=== PATIENT | female | born 1965 | race Caucasian/White ===

== ENCOUNTER 2016-06-13 12:17 | Observation (INO) | payer BC ==
[2016-06-13] MEDS ORDERED: ASPIRIN 81 MG TABLET, CHEWABLE PO ONE (12:27)
--- NOTE | 2016-06-13 12:31 | ER Document Report ---
ED Medical Screen (RME) - General Chief Complaint: Chest Pain > 30 Stated Complaint: CHEST PAIN Time seen by provider: 12:29 Mode of Arrival: Wheelchair Information source: Patient Notes: 51-year-old female presents to ED for chest very tight like an elephant sitting on her chest this morning while all with her in outpatient. She stood up felt very dizzy and felt like she was given a pass out that her chest started hurting, short of breath, felt nausea no vomiting. Patient states that her mouth is very dry. She states she had a stress test about a month ago which was negative, she has a history of high blood pressure and is on medication her heart rate is 139 in RME. Physical Exam - Vital signs Vitals: Temp Pulse Resp BP Pulse Ox 97.8 F 139 H 18 132/78 H 100 06/13/16 12:19 06/13/16 12:19 06/13/16 12:19 06/13/16 12:19 06/13/16 12:19 Course - Vital Signs Vital signs: Temp Pulse Resp BP Pulse Ox 97.8 F 139 H 18 132/78 H 100 06/13/16 12:19 06/13/16 12:19 06/13/16 12:19 06/13/16 12:19 06/13/16 12:19
[2016-06-13] MEDS ORDERED: NITROGLYCERIN 0.4 MG/TAB 25 TAB/BOTTLE SL PRN ×2 (13:15→15:15)
[2016-06-13 13:32] LABS: ABSOLUTE EOSINOPHILS # (AUTO) 0.2 10^3/uL (0.0-0.6); ABSOLUTE LYMPHOCYTES (AUTO) 1.9 10^3/uL (0.5-4.7); ABSOLUTE MONOCYTES (AUTO) 0.4 10^3/uL (0.1-1.4); ABSOLUTE NEUT (AUTO) 2.7 10^3/uL (1.7-8.2); BASOPHILS % (AUTO) 0.6 % (0-2); EOSINOPHILS % (AUTO) 3.1 % (0-6); HEMATOCRIT 40.1 % (36.0-47.0); HGB HCT DIFFERENCE -1.1; LYMPHOCYTES % (AUTO) 37.3 % (13-45); MEAN CORPUSCULAR HEMOGLOBIN 27.5 pg (27.0-33.4); MEAN CORPUSCULAR HGB CONC 32.5 g/dL (32.0-36.0); MEAN CORPUSCULAR VOLUME 85 fl (80-97); RED BLOOD COUNT 4.73 10^6/uL (3.72-5.28); RED CELL DISTRIBUTION WIDTH 13.1 % (11.5-14.0); WHITE BLOOD COUNT 5.1 10^3/uL (4.0-10.5)
[2016-06-13 13:43] LABS: ALANINE AMINOTRANSFERASE 47 U/L (9-52); ALBUMIN 4.8 g/dL (3.5-5.0); ALKALINE PHOSPHATASE 81 U/L (38-126); ANION GAP 13 (5-19); ASPARTATE AMINO TRANSFERASE 56 U/L (14-36); BILIRUBIN,TOTAL 0.7 mg/dL (0.2-1.3); BLOOD UREA NITROGEN 12 mg/dL (7-20); CALCIUM 10.4 mg/dL (8.4-10.2); CARBON DIOXIDE 29 mmol/L (22-30); CHLORIDE 101 mmol/L (98-107); CREATINE KINASE 141 U/L (30-135); CREATININE RESULT 0.83 mg/dL (0.52-1.25); GLUCOSE 133 mg/dL (75-110); POTASSIUM 4.7 mmol/L (3.6-5.0); SODIUM 143.3 mmol/L (137-145); TOTAL PROTEIN 7.7 g/dL (6.3-8.2)
[2016-06-13 13:44] LABS: PROTHROMBIN TIME 12.8 SEC (11.4-15.4)
[2016-06-13 13:45] LABS: PARTIAL THROMBOPLASTIN TIME 27.1 SEC (23.5-35.8)
[2016-06-13 13:56] LABS: TROPONIN I < 0.012 ng/mL
--- NOTE | 2016-06-13 14:52 | ER Document Report ---
ED Cardiac - General Chief Complaint: Chest Pain > 30 Stated Complaint: CHEST PAIN Mode of Arrival: Wheelchair Notes: Patient is a hypertensive, previous smoker 51-year-old female who presents to emergency Department complaining of sudden onset chest pain. Patient states last evening she was sleeping and woke him up out of his sleep with sudden onset substernal pressure described as 5 out of 5 in severity is stated dyspnea due to the pressure feeling. She said she was able to fall back asleep. Patient says that today they came to the hospital for her to have rotator cuff surgery. She went to stand up when she had return of this chest pain described as a heavy pressure that is constant is a 5 out of 5 in severity with associated dyspnea. She also states she had associated dizziness and nausea without any radiation. She came over to our emergency department for evaluation. Past medical history significant for hypertension and rheumatoid arthritis, was previously treated for pneumonia over a month ago Previously had a stress test within the year which was normal Past surgical history denies Social history quit 3 years ago but 12-1/2 pack years No allergies The patient will be a new patient at [facility] in [place] to see Polly Hernandez within the month TRAVEL OUTSIDE OF THE [place] IN LAST 30 DAYS: No - Related Data Allergies/Adverse Reactions: No Known Allergies Allergy (Verified 06/13/16 12:32) Past Medical History - General Information source: Patient - Social History Smoking Status: Never Smoker Chew tobacco use (# tins/day): No Frequency of alcohol use: None Drug Abuse: None Family History: CAD, Other - CHF Patient has suicidal ideation: No Patient has homicidal ideation: No - Past Medical History Cardiac Medical History: Reports: Hx Hypertension Renal/ Medical History: Denies: Hx Peritoneal Dialysis Musculoskeltal Medical History: Reports Hx Arthritis Surgical Hx: Negative Review of Systems - Review of Systems Constitutional: No symptoms reported EENT: No symptoms reported Cardiovascular: See HPI Respiratory: See HPI Gastrointestinal: See HPI Genitourinary: No symptoms reported Female Genitourinary: No symptoms reported Musculoskeletal: No symptoms reported Skin: No symptoms reported Hematologic/Lymphatic: No symptoms reported Neurological/Psychological: No symptoms reported Physical Exam - Vital signs Vitals: Temp Pulse Resp BP Pulse Ox 97.8 F 139 H 18 132/78 H 100 06/13/16 12:19 06/13/16 12:19 06/13/16 12:06/13/16 12:06/13/16 12:19 - Notes Notes: PHYSICAL EXAM GENERAL: Alert, interacts well. HEAD: Normocephalic, atraumatic. EYES: Pupils equal, round, and reactive to light. Extraocular movements intact. ENT: Oral mucosa moist, tongue midline. NECK: Full range of motion. Supple. Trachea midline. LUNGS: Clear to auscultation bilaterally, no wheezes, rales, or rhonchi. No respiratory distress. HEART: Regular rate and rhythm. No murmurs, gallops, or rubs. ABDOMEN: Soft, nondistended, nontender. No guarding, rebound, or rigidity.. Bowel sounds present in all 4 quadrants. EXTREMITIES: Moves all 4 extremities spontaneously. No edema, radial and dorsalis pedis pulses 2/4 bilaterally. No cyanosis. NEUROLOGICAL: Alert and oriented x3. Normal speech. PSYCH: Normal affect, normal mood. SKIN: Warm, dry, normal turgor. No rashes or lesions noted. Course - Re-evaluation Re-evalutation: 06/13/16 14:53 Patient is a 51-year-old female who is in no acute distress and hemodynamically stable. Presented the emergency department with sudden onset chest pain that was substernal in nature. She has had 2 occurrences of this within 12 hours 1 originally waking her out of sleep. She was given acetaminophen which did not resolve her pain per protocol, was also given one sublingual nitroglycerin tablet which didn't resolve her pain. She has no acute EKG changes, troponins are negative but does have elevation in her CK-MB and creatinine kinase. Case is discussed with supervising physician Dr. Ashley Munguia, hospitalist Dr. Naya Fernandez and Jordana Driver SCALE TECHNICIAN for observation for chest pain given her risk factors of high blood pressure, previous smoker, age and female as well as her history and labs. Plan was discussed with patient. While she was tearful because her is having surgery and she is hoping to go home. She has expressed understanding and agrees to plan. - Vital Signs Vital signs: Temp Pulse Resp BP Pulse Ox 97.8 F 139 H 18 132/78 H 98 06/13/16 12:19 06/13/16 12:06/13/16 12:06/13/16 12:19 06/13/16 13:04 - Laboratory Result Diagrams: 06/13/16 12:55 06/13/16 12:55 Laboratory results interpreted by me: 06/13/16 06/13/16 12:55 12:55 Glucose 133 H Calcium 10.4 H AST 56 H Creatine Kinase 141 H CK-MB (CK-2) 4.90 H - Diagnostic Test Radiology reviewed: Image reviewed, Reports reviewed - EKG Interpretation by Me EKG shows normal: Sinus rhythm Rate: Normal Rhythm: NSR When compared to previous EKG there are: Previous EKG unavailable - Consults Jordana Driver SCALE TECHNICIAN Reason for consultation: 06/13/16 14:51 Observation for chest pain. Discharge - Discharge Clinical Impression: Chest pain Qualifiers: Chest pain type: unspecified Qualified Code(s): R07.9 - Chest pain, unspecified Condition: Stable Disposition: ADMITTED OBSERVATION Admitting Provider: Hospitalist Unit Admitted: Telemetry
--- NOTE | 2016-06-13 16:11 | PDOC H&P ---
History of Present Illness Admission Date/PCP: 06/13/16 15:38 DAINA MARGI Patient complains of: Epigastric pain History of Present Illness: MARIA A LOREDO is a 51 year old female who presents to [facility] ED this morning, with complaints of epigastric pain radiating up midsternally awoke in her from sleep. She had mild dyspnea associated with pain as well as nausea. She denies any diaphoresis, she denies any palpitations or vomiting. She had recent pain a month ago, and was seen by her primary care provider. She underwent stress testing in [place] which was reported negative for cardiac ischemia. She states the pain today was similar to that how ever it was more severe in nature. She denies any history of gastroesophageal reflux disease or gallbladder disease. She states the pain did not resolve at home she therefore presented to the the ER. She does admit to being under a great deal of stress at home as well as work. She does have family history of coronary artery disease in her mother who passed with the age 69 from an [place]. Patient reports normal cholesterol results. She she does have mild essential hypertension and former tobacco user. She is postnasal menopausal with last menstrual cycle being over 10 years ago. Past Medical History Cardiac Medical History: Reports: Hypertension Pulmonary Medical History: Reports: None EENT Medical History: Reports: None Neurological Medical History: Reports: None Endocrine Medical History: Reports: None Renal/ Medical History: Reports: None Malignancy Medical History: Reports: None GI Medical History: Reports: None Musculoskeltal Medical History: Reports: Arthritis Skin Medical History: Reports: None Psychiatric Medical History: Reports: None Traumatic Medical History: Reports: None Hematology: Reports: None Infectious Medical History: Reports: None Past Surgical History Past Surgical History: Reports: None Social History Information Source: Patient Lives with: Family, Spouse/Significant other Smoking Status: Former Smoker Number of Years Smokin Last Time Smoked: 3 yrs ago Frequency of Alcohol Use: Occasional Hx Recreational Drug Use: No - Advance Directive Resuscitation Status: Full Code Surrogate healthcare decision maker:: if she were to become incapacitated Family History Family History: CAD, Hypertension, Other - CHF Parental Family History Reviewed: Yes Children Family History Reviewed: Yes Sibling(s) Family History Reviewed.: Yes Medication/Allergy Allergies/Adverse Reactions: No Known Allergies Allergy (Verified 06/13/16 12:32) Review of Systems Constitutional: ABSENT: chills, fever(s), headache(s), weight gain, weight loss Eyes: ABSENT: visual disturbances Ears: ABSENT: hearing changes Cardiovascular: PRESENT: chest pain. ABSENT: dyspnea on exertion, edema, orthropnea, palpitations Respiratory: ABSENT: cough, hemoptysis Gastrointestinal: PRESENT: heartburn. ABSENT: abdominal pain, constipation, diarrhea, hematemesis, hematochezia, nausea, vomiting Genitourinary: ABSENT: dysuria, hematuria Musculoskeletal: ABSENT: joint swelling Integumentary: ABSENT: rash, wounds Neurological: ABSENT: abnormal gait, abnormal speech, confusion, dizziness, focal weakness, syncope Psychiatric: PRESENT: anxiety. ABSENT: depression, homidical ideation, suicidal ideation Endocrine: ABSENT: cold intolerance, heat intolerance, polydipsia, polyuria Hematologic/Lymphatic: ABSENT: easy bleeding, easy bruising Physical Exam Vital Signs: Temp Pulse Resp BP Pulse Ox 97.8 F 139 H 16 97/72 L 99 06/13/16 12:19 06/13/16 12:19 06/13/16 15:00 06/13/16 14:01 06/13/16 15:00 General appearance: PRESENT: no acute distress, obese, well-developed, well- nourished Head exam: PRESENT: atraumatic, normocephalic Eye exam: PRESENT: conjunctiva pink, EOMI, PERRLA. ABSENT: scleral icterus Ear exam: PRESENT: normal external ear exam Mouth exam: PRESENT: moist, tongue midline Respiratory exam: PRESENT: clear to auscultation willian. ABSENT: rales, rhonchi, wheezes Cardiovascular exam: PRESENT: RRR. ABSENT: diastolic murmur, rubs, systolic murmur Pulses: PRESENT: normal dorsalis pedis pul Vascular exam: PRESENT: normal capillary refill GI/Abdominal exam: PRESENT: normal bowel sounds, soft. ABSENT: distended, guarding, mass, organolmegaly, rebound, tenderness Rectal exam: PRESENT: deferred Extremities exam: PRESENT: full ROM. ABSENT: calf tenderness, clubbing, pedal edema Neurological exam: PRESENT: alert, awake, oriented to person, oriented to place , oriented to time, oriented to situation, CN II-XII grossly intact. ABSENT: motor sensory deficit Psychiatric exam: PRESENT: appropriate affect, normal mood. ABSENT: homicidal ideation, suicidal ideation Skin exam: PRESENT: dry, intact, warm. ABSENT: cyanosis, rash Results Impressions: Chest X-Ray 06/13/16 12:28 IMPRESSION: NO SIGNIFICANT RADIOGRAPHIC FINDING IN THE CHEST. Assessment & Plan - Diagnosis (1) Chest pain Qualifiers: Chest pain type: unspecified Qualified Code(s): R07.9 - Chest pain, unspecified Is this a current diagnosis for this admission?: YesPlan: Patient had a negative stress test one month ago. Will obtain ultrasound of gallbladder, start on PPI therapy and serial troponins (2) Epigastric abdominal pain Is this a current diagnosis for this admission?: YesPlan: Will obtain ultrasound of gallbladder and start on PPI therapy (3) Obesity (BMI 35.0-39.9 without comorbidity) Is this a current diagnosis for this admission?: YesPlan: Patient counseled - Time Time Spent: 50 to 70 Minutes Critical Time spent with patient: 25-34 minutes Medications reviewed and adjusted accordingly: Yes Anticipated discharge: Home
[2016-06-13] MEDS ORDERED: MAG HYDROX/AL HYDROX/SIMETH SUSP 30 ML UDCUP PO ONE (17:16)
[2016-06-13] MEDS ORDERED: LIDOCAINE 2% VISCOUS SOLN 20 ML UDCUP PO ONE (17:16)
[2016-06-13] MEDS ORDERED: METOCLOPRAMIDE HCL ORAL SOLN 10 MG/10 ML UDCUP PO ONE (17:16)
[2016-06-13] MEDS: LANSOPRAZOLE 30 MG TAB.RAP.DR PO SCH (18:24)
[2016-06-13] MEDS: DIAZEPAM 5 MG TABLET PO PRN (18:53)
--- NOTE | 2016-06-13 18:56 | EKG REPORT ---
SEVERITY:- NORMAL ECG - SINUS RHYTHM : Confirmed by: Rohith Jean MD 13-Jun-2016 18:56:08
--- NOTE | 2016-06-13 18:57 | EKG REPORT ---
SEVERITY:- OTHERWISE NORMAL ECG - SINUS TACHYCARDIA : Confirmed by: Rohith Jean MD 13-Jun-2016 18:56:18
[2016-06-13 20:36] LABS: CREATINE KINASE MB 4.59 ng/mL (<4.55)
[2016-06-13 20:49] LABS: TROPONIN I < 0.012 ng/mL
[2016-06-14 02:04] LABS: CREATINE KINASE MB 4.99 ng/mL (<4.55)
[2016-06-14 02:05] LABS: TROPONIN I < 0.012 ng/mL
[2016-06-14] MEDS: LANSOPRAZOLE 30 MG TAB.RAP.DR PO SCH (06:13)
[2016-06-14 09:34] LABS: CHOLESTEROL 154.72 mg/dL (0-200); Direct HDL 48 mg/dL (>40); TRIGLYCERIDES 125 mg/dL (<150)
[2016-06-14 09:44] LABS: DIRECT LDL 55 mg/dL (<100)
[2016-06-14 09:46] LABS: CREATINE KINASE MB 4.87 ng/mL (<4.55)
[2016-06-14 09:56] LABS: TROPONIN I < 0.012 ng/mL
[2016-06-14] MEDS ORDERED: ASPIRIN 81 MG TABLET, ENT COATED PO SCH (10:00)
[2016-06-14] MEDS ORDERED: LISINOPRIL 10 MG TABLET PO SCH (10:00)
[2016-06-14] MEDS: DIAZEPAM 5 MG TABLET PO PRN (10:03)
[2016-06-14 12:55] VITALS: BP 101/63
--- NOTE | 2016-06-14 16:10 | PDOC DISCHARGE SUMMARY ---
General - Admit/Disc Date/PCP Admission Date/Primary Care Provider: 06/13/16 15:15 DAINA KISER Discharge Date: 06/14/16 - Discharge Diagnosis (1) Chest pain Is this a current diagnosis for this admission?: YesSummary: Troponins ruled out. Had negative stress test one month ago. Pain is atypical and positional most likely related to GI source. Ultrasound shows cholelithiasis , no signs of cholecystitis. Follow up with general surgery as an outpatient if symptoms persist (2) Epigastric abdominal pain Is this a current diagnosis for this admission?: YesSummary: As above. Started on Protonix 40 mg daily (3) Obesity (BMI 35.0-39.9 without comorbidity) Is this a current diagnosis for this admission?: YesSummary: Counseled on weight loss and low fat diet - Additional Information Resuscitation Status: Full Code Discharge Diet: Regular, Other (Comments) - low fat Discharge Activity: Activity As Tolerated Home Medications: Lisinopril 10 mg PO DAILY 06/13/16 Pantoprazole Sodium [Protonix] 40 mg PO DAILY #30 tablet. 06/14/16 History of Present Illness Patient complains of: Epigastric and midsternal chest pain History of Present Illness: MARIA A LOREDO is a 51 year old female who presents to [facility] ED this morning, with complaints of epigastric pain radiating up midsternally awoke in her from sleep. She had mild dyspnea associated with pain as well as nausea. She denies any diaphoresis, she denies any palpitations or vomiting. She had recent pain a month ago, and was seen by her primary care provider. She underwent stress testing in [place] which was reported negative for cardiac ischemia. She states the pain today was similar to that how ever it was more severe in nature. She denies any history of gastroesophageal reflux disease or gallbladder disease. She states the pain did not resolve at home she therefore presented to the the ER. She does admit to being under a great deal of stress at home as well as work. She does have family history of coronary artery disease in her mother who passed with the age 69 from an [place]. Patient reports normal cholesterol results. She she does have mild essential hypertension and former tobacco user. She is postnasal menopausal with last menstrual cycle being over 10 years ago. Hospital Course Hospital Course: Patient was referred to the hospitalist for observation admission. The patient had a normal stress test one month ago. Therefore ultrasound of her gallbladder was obtained which showed hepatic stearotosis and cholelithiasis with no signs of choleycystitis. She had serial troponins which were all normal. She was started on PPI therapy with improvement of her symptoms. Physical Exam Vital Signs: Temp Pulse Resp BP Pulse Ox 98.4 F 71 14 122/68 97 06/14/16 12:40 06/14/16 12:40 06/14/16 12:40 06/14/16 12:40 06/14/16 12:40 Intake & Output 06/13/16 06/14/16 06/15/16 06:59 06:59 06:59 Intake Total 600 Balance 600 Weight 88.5 kg General appearance: PRESENT: no acute distress, obese, well-developed, well- nourished Head exam: PRESENT: atraumatic, normocephalic Eye exam: PRESENT: conjunctiva pink, EOMI, PERRLA. ABSENT: scleral icterus Ear exam: PRESENT: normal external ear exam Mouth exam: PRESENT: moist, tongue midline Neck exam: ABSENT: carotid bruit, JVD, lymphadenopathy, thyromegaly Respiratory exam: PRESENT: clear to auscultation willian. ABSENT: rales, rhonchi, wheezes Cardiovascular exam: PRESENT: RRR. ABSENT: diastolic murmur, rubs, systolic murmur Pulses: PRESENT: normal dorsalis pedis pul Vascular exam: PRESENT: normal capillary refill GI/Abdominal exam: PRESENT: normal bowel sounds, soft. ABSENT: distended, guarding, mass, organolmegaly, rebound, tenderness Rectal exam: PRESENT: deferred Extremities exam: PRESENT: full ROM. ABSENT: calf tenderness, clubbing, pedal edema Neurological exam: PRESENT: alert, awake, oriented to person, oriented to place , oriented to time, oriented to situation, CN II-XII grossly intact. ABSENT: motor sensory deficit Psychiatric exam: PRESENT: appropriate affect, normal mood. ABSENT: homicidal ideation, suicidal ideation Skin exam: PRESENT: dry, intact, warm. ABSENT: cyanosis, rash Results Laboratory Results: 06/14/16 08:55 Triglycerides 125 Cholesterol 154.72 LDL Cholesterol Direct 55 VLDL Cholesterol 25.0 HDL Cholesterol 48 06/13/16 06/14/16 06/14/16 19:40 01:30 08:55 CK-MB (CK-2) 4.59 H 4.99 H 4.87 H Troponin I < 0.012 < 0.012 < 0.012 Impressions: Abdomen Ultrasound 06/13/16 00:00 IMPRESSION: Cholelithiasis. 1.2 cm nonspecific common duct dilation. Laboratory correlation recommended. Chest X-Ray 06/13/16 12:28 IMPRESSION: NO SIGNIFICANT RADIOGRAPHIC FINDING IN THE CHEST. Qualifiers PATEINT BEING DISCHARGED WITH ANY OF THE FOLLOWING DIAGNOSIS?: No Plan Discharge Plan: Discharge home with family. Follow up with primary care provider in one week. Time Spent: Less than 30 Minutes
== END 2016-06-14 13:18 | disposition home or self-care (01) ==
LOC: ER 12:17 → EH 15:15 → UNDOADMOB 15:38 → 5 17:39
PROVIDERS: ADMIT Family Medicine; ATTEND Family Medicine
DX: R07.9 Chest pain, unspecified (principal); R10.13 Epigastric pain; E66.9 Obesity, unspecified; Z68.35 Body mass index [BMI] 35.0-35.9, adult; I10 Essential (primary) hypertension; M19.90 Unspecified osteoarthritis, unspecified site; Z87.891 Personal history of nicotine dependence; Z82.49 Family history of ischemic heart disease and other diseases of the circulatory system
CPT/HCPCS: 93005; 99285; 36415 ×2; 82553 ×2; 82550; 83735; 84443; 85025; 85610; 85730; 80053; 84484 ×2; 80061; 71020; 76700; 93010; G0378 ×3; J3490

== ENCOUNTER 2017-07-01 04:40 | Emergency (ER) | payer BC ==
[2017-07-01] MEDS ORDERED: IPRATROPIUM/ALBUTEROL 0.5-2.5 MG/3 ML AMPUL NEB ONE (04:45)
[2017-07-01] MEDS ORDERED: PREDNISONE 20 MG TABLET PO ONE (04:45)
[2017-07-01] MEDS ORDERED: ALBUTEROL SULFATE 0.083% NEB 2.5 MG/3 ML AMPUL NEB SCH (05:00)
--- NOTE | 2017-07-01 06:03 | RADIOLOGY REPORT (SQ) ---
EXAM DESCRIPTION: CHEST SINGLE VIEW CLINICAL HISTORY: difficulty breathing COMPARISON: 06/13/2016 FINDINGS: Single frontal view of the chest. The cardiomediastinal silhouette has normal size and contour. No consolidation, pneumothorax, or pleural effusion. No displaced rib fractures identified. Upper abdominal soft tissues are unremarkable. IMPRESSION: 1. No acute pulmonary process identified.
[2017-07-01] MEDS ORDERED: ALBUTEROL SULFATE 0.083% NEB 2.5 MG/3 ML AMPUL NEB ONE (06:37)
--- NOTE | 2017-07-01 06:52 | ER Document Report ---
ED General - General Chief Complaint: Breathing Difficulty Stated Complaint: DIFFICULTY BREATHING Time Seen by Provider: 07/01/17 06:13 TRAVEL OUTSIDE OF THE [place] IN LAST 30 DAYS: No - HPI Patient complains to provider of: Difficulty breathing Notes: Difficulty breathing for the last 2 3 days. Patient states has a history of asthma. Patient states ran out of her nebulizer treatments at home. Patient does not smoke however from the did. Patient states there are family members to still smoke around her. Denies any recent travel denies fevers chills nausea vomiting denies any chest pain abdominal pain. Patient states cough with white sputum. Patient resting comfortably upon my evaluation artery received 1 breathing treatment states that she is feeling a little bit better. - Related Data Allergies/Adverse Reactions: No Known Allergies Allergy (Verified 06/13/16 12:32) Past Medical History - Social History Smoking Status: Never Smoker Frequency of alcohol use: None Drug Abuse: None Family History: CAD, Hypertension, Other - CHF Patient has suicidal ideation: No Patient has homicidal ideation: No - Past Medical History Cardiac Medical History: Reports: Hx Hypertension Renal/ Medical History: Denies: Hx Peritoneal Dialysis Musculoskeltal Medical History: Reports Hx Arthritis Psychiatric Medical History: Reports: Hx Depression Review of Systems - Review of Systems Constitutional: No symptoms reported EENT: No symptoms reported Cardiovascular: No symptoms reported Respiratory: Short of breath, Wheezing Gastrointestinal: No symptoms reported Genitourinary: No symptoms reported Female Genitourinary: No symptoms reported Musculoskeletal: No symptoms reported Skin: No symptoms reported Hematologic/Lymphatic: No symptoms reported Neurological/Psychological: No symptoms reported -: Yes All other systems reviewed and negative Physical Exam - Vital signs Vitals: Resp Pulse Ox 13 99 07/01/17 05:48 07/01/17 05:48 Interpretation: Normal - General General appearance: Appears well, Alert - HEENT Head: Normocephalic, Atraumatic Eyes: Normal Pupils: PERRL - Respiratory Respiratory status: No respiratory distress Chest status: Nontender Breath sounds: Wheezing Chest palpation: Normal - Cardiovascular Rhythm: Regular Heart sounds: Normal auscultation Murmur: No - Abdominal Inspection: Normal Distension: No distension Bowel sounds: Normal Tenderness: Nontender Organomegaly: No organomegaly - Back Back: Normal, Nontender - Extremities General upper extremity: Normal inspection, Nontender, Normal color, Normal ROM , Normal temperature General lower extremity: Normal inspection, Nontender, Normal color, Normal ROM , Normal temperature, Normal weight bearing. No: Alecia's sign - Neurological Neuro grossly intact: Yes Cognition: Normal Orientation: AAOx4 Tricia Coma Scale Eye Opening: Spontaneous [place] Coma Scale Verbal: Oriented Tricia Coma Scale Motor: Obeys Commands [place] Coma Scale Total: 15 Speech: Normal Motor strength normal: LUE, RUE, LLE, RLE Sensory: Normal - Psychological Associated symptoms: Normal affect, Normal mood - Skin Skin Temperature: Warm Skin Moisture: Dry Skin Color: Normal Course - Re-evaluation Re-evalutation: 07/01/17 06:51 Patient presents with wheezing on examination feeling much better after breathing treatments. Patient will be given another albuterol will send patient home with a prednisone taper and inhalers with neb treatments. Patient is to use her inhaler or neb treatment every 2 hours. Otherwise patient resting comfortably no signs of significant pathology chest x-ray negative - Vital Signs Vital signs: Temp Pulse Resp BP Pulse Ox 12 124/74 100 07/01/17 06:01 07/01/17 06:01 07/01/17 06:01 Discharge - Discharge Clinical Impression: Asthma Qualifiers: Asthma severity: mild Asthma persistence: unspecified Asthma complication type : with acute exacerbation Qualified Code(s): J45.901 - Unspecified asthma with ( acute) exacerbation Condition: Good Disposition: HOME, SELF-CARE Instructions: Asthma ([facility]) Additional Instructions: Your examination is consistent with an asthma exacerbation. Please use your inhaler or nebulizer 2 puffs or 1 treatment every 2-4 hours for the next 5 days. Then as needed for shortness of breath. Take prednisone as prescribed. Return to ER symptoms worsen. Please stop smoking and I have your family member stop smoking around your person. Prescriptions: Albuterol Sulfate [Albuterol Sulfate 2.5mg/3 mL] 1 vial IH Q4 PRN #30 vial PRN Reason: Prednisone [Deltasone] 60 mg PO DAILY #24 tablet Referrals: DAINA KISER FNP [Primary Care Provider] - Follow up as needed
[2017-07-01] MEDS ORDERED: ALBUTEROL SULFATE HFA (90 MCG/PUFF) 8 GM MDI (1 MDI/ER DISP) IH ONE (06:53)
[2017-07-01 07:13] VITALS: BP 109/68
== END 2017-07-01 07:22 | disposition home or self-care (01) ==
LOC: ER 04:40
DX: J45.901 Unspecified asthma with (acute) exacerbation (principal); R06.02 Shortness of breath; I10 Essential (primary) hypertension
CPT/HCPCS: 94640 ×2; 99284; 71045; J7512; J3490; J7620

== ENCOUNTER 2018-02-27 23:21 | Emergency (ER) | payer BC ==
[2018-02-27] MEDS ORDERED: IPRATROPIUM BROMIDE 0.02% NEB 0.5 MG/2.5 ML AMPUL NEB ONE (23:37)
[2018-02-27] MEDS ORDERED: ALBUTEROL SULFATE 0.083% NEB 2.5 MG/3 ML AMPUL NEB ONE (23:38)
[2018-02-27] MEDS ORDERED: IPRATROPIUM/ALBUTEROL 0.5-2.5 MG/3 ML AMPUL NEB ONE (23:38)
[2018-02-27] MEDS ORDERED: PREDNISONE 20 MG TABLET PO ONE (23:39)
--- NOTE | 2018-02-27 23:43 | ER Document Report ---
ED Respiratory Problem - General Mode of Arrival: Wheelchair Information source: Patient TRAVEL OUTSIDE OF THE [place] IN LAST 30 DAYS: No <KELSIE HERNANDEZ - Last Filed: 02/28/18 00:53> <LINDY CHILDERS - Last Filed: 03/01/18 15:42> - General Chief Complaint: Shortness Of Breath Stated Complaint: DIFFICULTY BREATHING Time Seen by Provider: 02/27/18 23:37 Notes: Patient is a 52 year old female with asthma presents to the emergency department complaining of difficulty breathing. Patient states she woke up around 2200 tonight with chest heaviness describing it as an "elephant on my chest" and difficulty breathing. She states her current symptoms are similar to her previous asthma exacerbations. Patient states she uses ProAir and nebulizers as needed at home but recently ran out of nebulizer treatments. She states she does not currently have chest pain at bedside. Patient denies being previously hospitalized, fevers or recent illnesses. (KELSIE HERNANDEZ) - Related Data Allergies/Adverse Reactions: No Known Allergies Allergy (Verified 06/13/16 12:32) Past Medical History - General Information source: Patient - Social History Smoking Status: Never Smoker Cigarette use (# per day): No Chew tobacco use (# tins/day): No Smoking Education Provided: No Frequency of alcohol use: None Family History: CAD, Hypertension, Other - CHF - Past Medical History Cardiac Medical History: Reports: Hx Hypertension Musculoskeletal Medical History: Reports Hx Arthritis Psychiatric Medical History: Reports: Hx Depression <KELSIE HERNANDEZ - Last Filed: 02/28/18 00:53> Review of Systems - Review of Systems Constitutional: No symptoms reported EENT: No symptoms reported Cardiovascular: See HPI, Chest pain - Chest heaviness, denies current chest pain Respiratory: See HPI Gastrointestinal: No symptoms reported Genitourinary: No symptoms reported Female Genitourinary: No symptoms reported Musculoskeletal: No symptoms reported Skin: No symptoms reported Hematologic/Lymphatic: No symptoms reported Neurological/Psychological: No symptoms reported -: Yes All other systems reviewed and negative <KELSIE HERNANDEZ - Last Filed: 02/28/18 00:53> Physical Exam <KELSIE HERNANDEZ - Last Filed: 02/28/18 00:53> <LINDY CHILDERS - Last Filed: 03/01/18 15:42> - Vital signs Vitals: Resp 26 H 02/27/18 23:26 - Notes Notes: GENERAL: Alert, interacts well. No acute distress. HEAD: Normocephalic, atraumatic. EYES: Pupils equal, round, and reactive to light. Extraocular movements intact. ENT: Oral mucosa moist, tongue midline. NECK: Full range of motion. Supple. Trachea midline. LUNGS: Diffuse expiratory wheezes, end expiratory phase. Speaking in full sentences. No respiratory distress. HEART:Tachycardic. No murmurs, gallops, or rubs. ABDOMEN: Soft, non-tender. Non-distended. Bowel sounds present in all 4 quadrants. EXTREMITIES: Moves all 4 extremities spontaneously. NEUROLOGICAL: Alert and oriented x3. Normal speech. PSYCH: Normal affect, normal mood. SKIN: Warm, dry, normal turgor. No rashes or lesions noted. (KELSIE HERNANDEZ) Course <KELSIE HERNANDEZ - Last Filed: 02/28/18 00:53> - Diagnostic Test Radiology reviewed: Image reviewed - NAD, Reports reviewed - EKG Interpretation by Nv EKG shows normal: Sinus rhythm Rate: Tachycardia Rhythm: NSR - Normal axis and intervals <LINDY CHILDERS - Last Filed: 03/01/18 15:42> - Re-evaluation Re-evalutation: 02/27/18 23:59 Patient rechecked. Patient is actively receiving DuoNeb treatment although wheezing has resolved. 02/28/18 00:48 Patient states she is feeling better. (KELSIE HERNANDEZ) 02/28/18 01:20 Patient resting comfortably oxygenating well in no acute distress with no longer having any chest tightness. Will provide 5 days of steroids return precautions provided patient also has run out of her pro-air will provide her albuterol puffer. 02/28/18 01:25 Patient noted to have tachycardia discharge the patient also had DuoNeb milligrams of albuterol and denies any chest pain at this time (LINDY CHILDERS) - Vital Signs Vital signs: Temp Pulse Resp BP Pulse Ox 98.7 F 131 H 17 115/76 89 L 02/28/18 02:37 02/27/18 23:28 02/28/18 02:36 02/28/18 02:37 02/28/18 02:36 Discharge <KELSIE HERNANDEZ - Last Filed: 02/28/18 00:53> <LINDY CHILDERS - Last Filed: 03/01/18 15:42> - Discharge Clinical Impression: Asthma attack Qualifiers: Asthma severity: moderate Asthma persistence: unspecified Qualified Code(s): J45.901 - Unspecified asthma with (acute) exacerbation Condition: Good Disposition: HOME, SELF-CARE Instructions: Asthma (PENDING SALE TO [facility]) Additional Instructions: Please use 2-4 puffs of albuterol for all puffer provided every 4 hours for the next 2 days and then 2 puffs every 4 hours as needed thereafter. Prescriptions: Prednisone 40 mg PO DAILY 5 Days #10 tablet Referrals: DAINA KISER FNP [Primary Care Provider] - Follow up as needed Scribe Attestation: 03/01/18 15:42 I personally performed the services described in the documentation, reviewed and edited the documentation which was dictated to the scribe in my presence, and it accurately records my words and actions (LINDY CHILDERS) Scribe Documentation - Scribe Written by Azeem:: Azeem Nelson, 02/27/2018 23:45 acting as scribe for :: Luis Enrique <KELSIE HERNANDEZ - Last Filed: 02/28/18 00:53>
[2018-02-28] MEDS ORDERED: ALBUTEROL SULFATE HFA (90 MCG/PUFF) 200 PUFF/8.5 GM MDI IH ONE (01:24)
--- NOTE | 2018-02-28 01:27 | RADIOLOGY REPORT (SQ) ---
EXAM DESCRIPTION: X-ray single view chest. CLINICAL HISTORY: 52 years Female, wheezing COMPARISON: Prior portable chest performed on 07/01/2017 TECHNIQUE: Single portable view of the chest performed on 02/28/2018 at 12:47 AM FINDINGS: The lungs are well expanded and are clear. There is no evidence of a pneumothorax. The cardiac silhouette is normal in size and configuration. The mediastinal contours are normal. No acute osseous abnormality is identified. No focal soft tissue abnormalities are seen. Lines and tubes: None. IMPRESSION: No evidence of acute intrathoracic disease. No significant change when compared to the prior study.
[2018-02-28 04:40] VITALS: BP 115/76
--- NOTE | 2018-02-28 19:21 | EKG REPORT ---
SEVERITY:- OTHERWISE NORMAL ECG - SINUS TACHYCARDIA : Confirmed by: Sapna Browne 28-Feb-2018 19:20:23
== END 2018-02-28 02:36 | disposition home or self-care (01) ==
LOC: ER 23:21
DX: J45.901 Unspecified asthma with (acute) exacerbation (principal); T48.6X6A Underdosing of antiasthmatics, initial encounter; Z91.128 Patient's intentional underdosing of medication regimen for other reason; Z91.14 Patient's other noncompliance with medication regimen; R06.02 Shortness of breath; I10 Essential (primary) hypertension; Z82.49 Family history of ischemic heart disease and other diseases of the circulatory system
CPT/HCPCS: 93005; 94640; 99285; 71045; 93010; J7512; J3490 ×2

== ENCOUNTER 2019-05-09 19:04 | Inpatient (IN) | payer BC ==
[2019-05-09 19:38] LABS: ABSOLUTE EOSINOPHILS # (AUTO) 0.1 10^3/uL (0.0-0.6); ABSOLUTE LYMPHOCYTES (AUTO) 1.2 10^3/uL (0.5-4.7); ABSOLUTE MONOCYTES (AUTO) 0.2 10^3/uL (0.1-1.4); ABSOLUTE NEUT (AUTO) 4.8 10^3/uL (1.7-8.2); BASOPHILS % (AUTO) 0.5 % (0-2); HEMATOCRIT 42.2 % (36.0-47.0); HEMOGLOBIN 14.1 g/dL (12.0-15.5); LYMPHOCYTES % (AUTO) 19.5 % (13-45); MEAN CORPUSCULAR HEMOGLOBIN 27.9 pg (27.0-33.4); MEAN CORPUSCULAR HGB CONC 33.5 g/dL (32.0-36.0); MEAN CORPUSCULAR VOLUME 84 fl (80-97); MONOCYTES % (AUTO) 3.2 % (3-13); PLATELET COUNT 277 10^3/uL (150-450); RED BLOOD COUNT 5.06 10^6/uL (3.72-5.28); RED CELL DISTRIBUTION WIDTH 13.1 % (11.5-14.0); SEGMENTED NEUTROPHILS % (AUTO) 75.8 % (42-78); TOTAL CELLS COUNTED % (AUTO) 100 %; WHITE BLOOD COUNT 6.4 10^3/uL (4.0-10.5)
[2019-05-09 19:57] LABS: ALBUMIN 4.6 g/dL (3.5-5.0); ALKALINE PHOSPHATASE 114 U/L (38-126); ANION GAP 14 (5-19); ASPARTATE AMINO TRANSFERASE 34 U/L (14-36); BILIRUBIN,DIRECT 0.2 mg/dL (0.0-0.4); BILIRUBIN,TOTAL 0.7 mg/dL (0.2-1.3); BLOOD UREA NITROGEN 14 mg/dL (7-20); CARBON DIOXIDE 26 mmol/L (22-30); CHLORIDE 98 mmol/L (98-107); POTASSIUM 4.2 mmol/L (3.6-5.0); TOTAL PROTEIN 7.8 g/dL (6.3-8.2)
[2019-05-09 20:08] LABS: APPEARANCE,URINE SLIGHTLY-CLOUDY; BILIRUBIN,URINE NEGATIVE (NEGATIVE); COLOR,URINE STRAW; GLUCOSE, URINE >=500 mg/dL (NEGATIVE); KETONES,URINE 20 mg/dL (NEGATIVE); LEUKOCYTE ESTERASE,URINE NEGATIVE (NEGATIVE); NITRITE,URINE NEGATIVE (NEGATIVE); PROTEIN,URINE NEGATIVE (NEGATIVE); URINE SPECIFIC GRAVITY 1.025; UROBILINOGEN,URINE NEGATIVE mg/dL (<2.0)
[2019-05-09 20:17] LABS: GLUCOSE 446 mg/dL (75-110)
--- NOTE | 2019-05-09 20:33 | RADIOLOGY REPORT (SQ) ---
XR CHEST 1 VIEW EXAM DATE: 05/09/2019 7:22 PM HOSPICE AIDE HISTORY: SOB. COMPARISON: 02/27/2018 FINDINGS: Normal heart size without pulmonary edema. The lungs are clear. No pleural effusions or pneumothorax. IMPRESSION: No evidence of acute cardiopulmonary disease.
--- NOTE | 2019-05-09 20:54 | EKG REPORT ---
SEVERITY:- BORDERLINE ECG - SINUS TACHYCARDIA CONSIDER ANTERIOR INFARCT VS POOR PRECORDIAL LEAD PLACEMENT : Confirmed by: Rohith Jean MD 09-May-2019 20:53:24
[2019-05-09] MEDS ORDERED: IPRATROPIUM/ALBUTEROL 0.5-2.5 MG/3 ML AMPUL NEB ONE (20:57)
[2019-05-09] MEDS ORDERED: INSULIN REG, HUMAN 100 UNIT/ML 3 ML VIAL (PYX) IV ONE (20:58)
--- NOTE | 2019-05-09 21:00 | ER Document Report ---
ED Respiratory Problem - General Chief Complaint: COPD Exacerbation Stated Complaint: RESPIRATORY DISTRESS Time Seen by Provider: 05/09/19 20:18 Primary Care Provider: DAINA KISER FNP [Primary Care Provider] - Follow up as needed Mode of Arrival: Medic Information source: Patient Notes: 54-year-old woman presents to the emergency department with a complaint of shortness of breath and wheezing. She has a history of COPD. Had URI symptoms preceding the exacerbation and tonight called EMS because inhaler and home nebulizers were not controlling her symptoms. She was noted to be hypoxic with O2 sat in the 90s with increased work to brief diffusely. Patient denies fever or productive cough. Denies a history of CHF or ischemic heart disease. TRAVEL OUTSIDE OF THE [place] IN LAST 30 DAYS: No - Related Data Allergies/Adverse Reactions: No Known Allergies Allergy (Verified 06/13/16 12:32) Past Medical History - General Information source: Patient - Social History Smoking Status: Former Smoker Cigarette use (# per day): Yes Family History: CAD, Hypertension, Other - CHF Patient has suicidal ideation: No Patient has homicidal ideation: No - Past Medical History Cardiac Medical History: Reports: Hx Hypertension Renal/ Medical History: Denies: Hx Peritoneal Dialysis Musculoskeletal Medical History: Reports Hx Arthritis Psychiatric Medical History: Reports: Hx Depression Past Surgical History: Reports: Hx Cholecystectomy Review of Systems - Review of Systems Notes: Constitutional: Negative for fever. HENT: Negative for sore throat. Eyes: Negative for visual changes. Cardiovascular: Negative for chest pain. Respiratory: +shortness of breath. Gastrointestinal: Negative for abdominal pain, vomiting or diarrhea. Genitourinary: Negative for dysuria. Musculoskeletal: + back pain. Skin: Negative for rash. Neurological: Negative for headaches, weakness or numbness. 10 point ROS negative except as marked above and in HPI. Physical Exam - Vital signs Vitals: Temp Pulse Resp BP Pulse Ox 98.4 F 110 H 20 140/81 H 97 05/09/19 19:11 05/09/19 19:11 05/09/19 19:11 05/09/19 19:11 05/09/19 19:11 - Notes Notes: PHYSICAL EXAMINATION: Physical Exam: General: Well-nourished overweight female in moderate distress secondary to shortness of breath. HEENT: NC/AT, pupils equal round and reactive to light, MM moist,nares clear, Neck: supple, no adenopathy, no masses. Lungs: Diffuse wheezing, no rales no rhonchi, + accessory muscles of respiration CVS: Tachycardia rate and rhythm no murmur gallop or rub Abdomen: Soft active nontender, no masses, no hepatosplenomegaly Ext: No edema clubbing or cyanosis. Neuro: Alert and responsive, moving all 4 extremities on command, cranial nerves intact. Skin: Intact no open lesions, no rash Course - Re-evaluation Re-evalutation: Differential diagnosis COPD exacerbation, acute bronchitis, pneumonia 05/09/19 23:14 Patient presents with shortness of breath and wheezing with increased cough. Apparently EMS was given nebulizer treatments IV Solu-Medrol and initial O2 sat was 89% on room air. Patient is a smoker does use a home inhaler and nebulizer. She has been afebrile and has cough productive of a whitish sputum. Patient is given nebulizer treatment in the emergency department continues to have O2 sats in the 91 to 92% range on 2 L nasal cannula. I have discussed with the patient coming into the hospital for further treatment and while she is reluctant she agrees with that plan. - Vital Signs Vital signs: Temp Pulse Resp BP Pulse Ox 98.4 F 110 H 16 126/80 H 91 L 05/09/19 19:11 05/09/19 19:11 05/09/19 21:01 05/09/19 21:01 05/09/19 21:01 - Laboratory Result Diagrams: 05/09/19 19:10 05/09/19 19:10 Laboratory results interpreted by me: 05/09/19 05/09/19 05/09/19 19:10 19:41 22:29 Glucose 446 H* POC Glucose 409 H* Urine Glucose (UA) >=500 H Urine Ketones 20 H 05/09/19 23:19 I have reviewed laboratory data and used this information for the treatment decisions regarding the patient. - Diagnostic Test Radiology reviewed: Image reviewed - Chest x-ray: No acute cardiopulmonary disease, no infiltrates or effusions., Reports reviewed Critical Care Note - Critical Care Note Total time excluding time spent on procedures (mins): 60 - Critical care time spent obtaining history from patient or surrogate, discussions with consultants, development of treatment plan with patient or surrogate, evaluation of patient's response to treatment, examination of patient, ordering and performing treatments and interventions, ordering and review of laboratory studies, re- evaluation of patient's condition, ordering and review of radiographic studies and review of old charts Discharge - Discharge Clinical Impression: COPD exacerbation, Hypoxia, New onset type 2 diabetes mellitus Condition: Fair Disposition: ADMITTED INPATIENT Admitting Provider: Erma (Hospitalist) Unit Admitted: Medical Floor Referrals: DAINA KISER FNP [Primary Care Provider] - Follow up as needed
[2019-05-10] MEDS ORDERED: MAGNESIUM HYDROXIDE SUSP 30 ML UDCUP PO PRN (00:02)
[2019-05-10] MEDS ORDERED: ONDANSETRON HCL INJ/PF 4 MG/2 ML SDV IV PRN (00:02)
[2019-05-10] MEDS ORDERED: MAG HYDROX/AL HYDROX/SIMETH SUSP 30 ML UDCUP PO PRN (00:02)
[2019-05-10] MEDS ORDERED: GLUCAGON,HUMAN RECOMB 1 MG INJ IM PRN ×2 (00:07→07:00)
[2019-05-10] MEDS ORDERED: INSULIN REG, HUMAN 100 UNIT/ML 3 ML VIAL (PYX) SUBCUT PRN (00:07)
[2019-05-10] MEDS ORDERED: DEXTROSE 50%-WATER 25 GM/50 ML DISP.SYRIN IV PRN ×4 (00:07→07:00)
[2019-05-10] MEDS ORDERED: METOPROLOL TARTRATE PF/INJ 5 MG/5 ML SDV IV PRN (00:07)
[2019-05-10] MEDS ORDERED: ACETAMINOPHEN 325 MG TABLET PO PRN (00:07)
[2019-05-10] MEDS ORDERED: DEXTROSE 40% GEL 15 GM TUBE PO PRN ×6 (00:07→20:41)
[2019-05-10] MEDS ORDERED: MORPHINE SULFATE 10 MG/ML INJ IV PRN ×3 (00:07)
[2019-05-10] MEDS: LEVALBUTEROL HCL NEB 0.63 MG/3 ML AMPUL NEB PRN ×2 (01:10→04:53)
[2019-05-10] MEDS: METHYLPREDNISOLONE INJ 40 MG/1 ML SDV IV SCH ×4 (02:38→21:56)
[2019-05-10 02:48] LABS: CHOLESTEROL 162.22 mg/dL (0-200); TRIGLYCERIDES 91 mg/dL (<150)
[2019-05-10 02:59] LABS: DIRECT LDL 71 mg/dL (<100)
--- NOTE | 2019-05-10 03:11 | PDOC H&P ---
History of Present Illness Admission Date/PCP: 05/09/2019 23:32 DEWEY HAYES Patient complains of: Dyspnea History of Present Illness: MARIA A LOREDO is a 54 year old female who presents the emergency room with a 2-day history of dyspnea. She admits progressively worsening dyspnea over the last 2 days, becoming severe on the evening of admission. Her dyspnea worsens with exertion and has been accompanied by wheezing and has not improved with use of inhalers and nebulizers at home. She admits prior similar episodes related to her COPD. She denies identification of any additional aggravating or ameliorating factors for her dyspnea. EMS found her to have an O2 sat of 89% on room air and initiated treatment with supplemental oxygen on her way to the emergency room. In the emergency room she was found to be hypoxic continuing to require O2 at 2 L/min per nasal cannula in order to maintain an adequate oxygen saturation. She was also noted to be tachypneic and tachycardic but improved with nebulizer treatments and IV Solu-Medrol. She was subsequently admitted to the hospital for further evaluation and treatment. Past Medical History Cardiac Medical History: Reports: Hypertension Denies: Congestive Heart Failure, Coronary Artery Disease, Myocardial Infarction, Hyperlipidema Pulmonary Medical History: Reports: Chronic Obstructive Pulmonary Disease (COPD) Denies: Asthma, Respiratory Failure EENT Medical History: Denies: Cataracts, Ears - Hearing aids Neurological Medical History: Denies: Hemorrhagic CVA, Ischemic CVA, Seizures Endocrine Medical History: Reports: Obesity Denies: Diabetes Mellitus Type 1, Diabetes Mellitus Type 2, Hyperthyroidism, Hypothyroidism Renal/ Medical History: Denies: Chronic Kidney Disease, Nephrolithiasis Malignancy Medical History: Reports: None GI Medical History: Denies: Cirrhosis, Crohn's Disease, Gastroesophageal Reflux Disease, Hepatitis, Peptic Ulcer Disease, Ulcerative Colitis Musculoskeltal Medical History: Reports: Arthritis - Rheumatoid arthritis Denies: Fibromyalgia, Gout Skin Medical History: Denies: Eczema, Psoriasis Psychiatric Medical History: Reports: Depression Denies: Alcohol Dependency, Substance Abuse, Tobacco Dependency Traumatic Medical History: Reports: None Hematology: Denies: Anemia, Bleeding Tendencies Infectious Medical History: Reports: None Past Surgical History Past Surgical History: Reports: Cholecystectomy Social History Information Source: Patient Lives with: Spouse/Significant other Smoking Status: Former Smoker Electronic Cigarette use?: No Frequency of Alcohol Use: Occasional Hx Recreational Drug Use: No Drugs: None Hx Prescription Drug Abuse: No - Advance Directive Resuscitation Status: Full Code Surrogate healthcare decision maker:: Luis Daniel Loredo Family History Family History: CAD, Hypertension, Other - CHF. denies: DM Parental Family History Reviewed: Yes Children Family History Reviewed: No Sibling(s) Family History Reviewed.: Yes Medication/Allergy Home Medications: Albuterol Sulfate [Albuterol Sulfate 2.5mg/3 mL] 1 vial IH Q4 PRN #30 vial 07/01/17 Albuterol Sulfate [Ventolin 0.083% Neb 2.5 mg/3 mL Ampul] 1 inh NEB Q4H PRN 05/10/19 Etanercept [Enbrel] 25 mg SQ Q1 05/10/19 Methotrexate Sodium [Trexall] 5 mg PO [id number] 05/10/19 Allergies/Adverse Reactions: No Known Allergies Allergy (Verified 06/13/16 12:32) Review of Systems Constitutional: ABSENT: chills, fever(s) Eyes: ABSENT: visual disturbances, other - Eye pain Ears: ABSENT: hearing changes, other - Ear pain Nose, Mouth, and Throat: ABSENT: headache(s), mouth pain, sore throat Cardiovascular: PRESENT: as per HPI, dyspnea on exertion. ABSENT: chest pain, e suzanne, orthropnea, palpitations Respiratory: PRESENT: as per HPI, dyspnea, other - Wheezing. ABSENT: cough Gastrointestinal: ABSENT: abdominal pain, constipation, diarrhea, nausea, vomiting Genitourinary: ABSENT: dysuria, hematuria Musculoskeletal: ABSENT: back pain, joint swelling, muscle weakness Integumentary: ABSENT: pruritus, rash Neurological: ABSENT: confusion, convulsions, focal weakness, memory loss, syncope Psychiatric: ABSENT: anxiety, depression Endocrine: ABSENT: cold intolerance, heat intolerance Hematologic/Lymphatic: ABSENT: easy bleeding, easy bruising Allergic/Immunologic: ABSENT: seasonal rhinorrhea Physical Exam Vital Signs: Temp Pulse Resp BP Pulse Ox 98.4 F 110 H 16 126/80 H 91 L 05/09/19 19:11 05/09/19 19:11 05/09/19 21:01 05/09/19 21:01 05/09/19 21:01 Intake & Output 05/07/19 05/08/19 05/09/19 23:59 23:59 23:59 Weight 81.647 kg General appearance: PRESENT: no acute distress, cooperative, obese, other - On supplemental oxygen Head exam: PRESENT: atraumatic, normocephalic Eye exam: PRESENT: conjunctiva pink. ABSENT: conjunctival injection, scleral icterus Ear exam: PRESENT: normal external ear exam. ABSENT: bleeding, drainage Mouth exam: PRESENT: dry mucosa, neck supple Neck exam: ABSENT: thyromegaly, tracheal deviation Respiratory exam: PRESENT: decreased breath sounds - Mildly decreased breath sounds throughout all, prolonged expiratory phas - Mildly prolonged expiratory phase noted throughout, symmetrical, wheezes - Expiratory wheezes noted throughout all lubin Cardiovascular exam: PRESENT: RRR, tachycardia. ABSENT: clicks, gallop, rubs Pulses: PRESENT: normal radial pulses, normal dorsalis pedis pul Vascular exam: PRESENT: normal capillary refill. ABSENT: pallor GI/Abdominal exam: PRESENT: normal bowel sounds, soft Rectal exam: PRESENT: deferred Extremities exam: ABSENT: joint swelling, pedal edema Musculoskeletal exam: ABSENT: deformity, dislocation Neurological exam: PRESENT: alert, oriented to person, oriented to place, oriented to time, oriented to situation, CN II-XII grossly intact. ABSENT: motor sensory deficit Psychiatric exam: PRESENT: appropriate affect, normal mood Skin exam: PRESENT: dry, intact, warm. ABSENT: jaundice, rash, urticaria Results Laboratory Results: 05/09/19 19:10 05/09/19 19:10 05/09/19 05/09/19 05/09/19 19:10 19:10 19:41 WBC 6.4 RBC 5.06 Hgb 14.1 Hct 42.2 MCV 84 MCH 27.9 MCHC 33.5 RDW 13.1 Plt Count 277 Seg Neutrophils % 75.8 Carbonic Acid HCO3/H2CO3 Ratio ABG pH ABG pCO2 ABG pO2 ABG HCO3 ABG O2 Saturation ABG Base Excess FiO2 Sodium 138.4 Potassium 4.2 Chloride 98 Carbon Dioxide 26 Anion Gap 14 BUN 14 Creatinine 0.61 Est GFR ( Amer) > 60 Glucose 446 H* Calcium 10.0 Total Bilirubin 0.7 AST 34 Alkaline Phosphatase 114 Total Protein 7.8 Albumin 4.6 Urine Color STRAW Urine Appearance SLIGHTLY-CLOUDY Urine pH 8.0 Ur Specific [place] 1.025 Urine Protein NEGATIVE Urine Glucose (UA) >=500 H Urine Ketones 20 H Urine Blood NEGATIVE Urine Nitrite NEGATIVE Ur Leukocyte Esterase NEGATIVE Urine WBC (Auto) 1 Urine RBC (Auto) 1 05/09/19 22:00 WBC RBC Hgb Hct MCV MCH MCHC RDW Plt Count Seg Neutrophils % Carbonic Acid Cancelled HCO3/H2CO3 Ratio Cancelled ABG pH Cancelled ABG pCO2 Cancelled ABG pO2 Cancelled ABG HCO3 Cancelled ABG O2 Saturation Cancelled ABG Base Excess Cancelled FiO2 Cancelled Sodium Potassium Chloride Carbon Dioxide Anion Gap BUN Creatinine Est GFR ( Amer) Glucose Calcium Total Bilirubin AST Alkaline Phosphatase Total Protein Albumin Urine Color Urine Appearance Urine pH Ur Specific [place] Urine Protein Urine Glucose (UA) Urine Ketones Urine Blood Urine Nitrite Ur Leukocyte Esterase Urine WBC (Auto) Urine RBC (Auto) Impressions: Chest X-Ray 05/09/19 19:22 IMPRESSION: No evidence of acute cardiopulmonary disease. Assessment and Plan - Diagnosis (1) COPD exacerbation Is this a current diagnosis for this admission?: Yes (2) Acute respiratory failure with hypoxia Is this a current diagnosis for this admission?: Yes (3) Hyperglycemia Is this a current diagnosis for this admission?: Yes (4) Rheumatoid arthritis Qualifiers: Rheumatoid arthritis location: multiple sites Rheumatoid factor presence: unspecified presence Qualified Code(s): M06.9 - Rheumatoid arthritis, unspecified Is this a current diagnosis for this admission?: Yes (5) Essential hypertension Is this a current diagnosis for this admission?: Yes - Plan Summary Summary: Patient is admitted to the medical floor where she will receive routine supportive symptomatic cares. She will be started on aggressive pulmonary toilet utilizing Xopenex, Atrovent and Pulmicort delivered via nebulizer. She will receive Solu-Medrol IV over a short course burst dose. She received supplemental oxygen via nasal cannula and if required noninvasive airway support devices will be used to maintain an adequate oxygen saturation greater than 93%. Hemoglobin A1c, TSH and lipid profile will be obtained. Daily CBCs and metabolic profiles will be obtained as needed. Patient will use morphine sulfate 2 to 4 mg IV every 2 hours on an as-needed basis for pain. She will be maintained on a cardiac and diabetic restricted diet. - Time Time Spent with patient: 25-34 minutes Medications reviewed and adjusted accordingly: Yes Anticipated discharge: Home - Inpatient Certification Based on my medical assessment, after consideration of the patient's com orbidities, presenting symptoms, or acuity I expect that the services needed warrant INPATIENT care.: Yes I certify that my determination is in accordance with my understanding of Medicare's requirements for reasonable and necessary INPATIENT services [42 CFR 412.3e].: Yes Medical Necessity: Significant Comorbidiites Make Outpatient Treatment Too Risky, Need Close Monitoring Due to Risk of Patient Decompensation, Need for Nebulizer Therapy and Monitoring of Response, Risk of Complication if Not Cared For in Hospital
[2019-05-10] MEDS ORDERED: LEVALBUTEROL HCL NEB 1.25 MG/3 ML AMPUL NEB ONE ×2 (05:24→05:30)
[2019-05-10] MEDS ORDERED: PANTOPRAZOLE SODIUM 40 MG TABLET.DR PO SCH (06:00)
--- NOTE | 2019-05-10 06:18 | Progress Note ---
Provider Note Provider Note: Critical Care Note: 05/10/2019 Critical care start time: 05:04 Critical care issue: Hypoxia The patient's nurse contacted me because her oxygen saturation decreased over the course of the last 30 minutes. Patient is working harder to breathe and her O2 sat was in the 70% range. BiPAP was ordered and initially started at 32% with pressures of 16/8. Patient did improve to O2 sats in the low 80s and thus pressures were gradually increased up to 20/10 and the FiO2 was increased to 100% with her O2 sat improving to the high 80s and low 90s, however her heart rate continue to accelerate from the initial 90s to the 130s and 140s. The ICU provider was contacted and came to see the patient in consultation. An extensive verbal report and review of the patient's case was undertaken with the ICU provider. Efforts were continued at assisting the patient's breathing with BiPAP and supplemental oxygen at 100% FiO2. ABGs were ordered but had not yet been obtained. Patient's pulmonary exam showed low volume high-pitched end expiratory wheezes and stridorous inspiratory sounds with very little air movement noted. Cardiac exam showed a regular rate and rhythm with no murmurs clicks gallops or rubs but tachycardia was obvious. Patient was noted to be using all of her accessory muscles of respiration and she was tripoding and her effort to be able to breathe. Patient was subsequently moved to the ICU and plans for intubation were being made at the time that she left the fourth floor. Critical care in time: 06:17 Total critical care face time: 32 minutes
[2019-05-10] MEDS ORDERED: NORMAL SALINE 100 ML with INSULIN REGULAR, HUMAN 100 UNIT IV PRN ×2 (07:00)
[2019-05-10] MEDS: HEPARIN SOD (PORCINE) 5,000 UNIT/ML 1 ML VIAL SUBCUT SCH ×3 (07:07→21:56)
[2019-05-10 07:08] LABS: ARTERIAL BLOOD BASE EXCESS -2.4 mmol/L; ARTERIAL BLOOD H2CO3 0.73 mmol/L (1.05-1.35); ARTERIAL BLOOD HCO3 18.8 mmol/L (20-24); ARTERIAL BLOOD O2 SATURATION 92.3 % (94-98); ARTERIAL BLOOD PCO2 24.4 mmHg (35-45); ARTERIAL BLOOD PH 7.51 (7.35-7.45); ARTERIAL BLOOD PO2 56.2 mmHg (80-100); ARTERIAL BLOOD TOTAL CO2 19.6 mmol/L (21-25)
[2019-05-10 07:09] LABS: ARTERIAL BLOOD FIO2 70%
[2019-05-10] MEDS: BUDESONIDE NEB 0.5 MG/2 ML AMPUL NEB SCH ×2 (07:51→20:04)
[2019-05-10] MEDS ORDERED: IPRATROPIUM BROMIDE 0.02% NEB 0.5 MG/2.5 ML AMPUL NEB SCH (08:00)
[2019-05-10] MEDS ORDERED: LEVALBUTEROL HCL NEB 1.25 MG/3 ML AMPUL NEB SCH (08:00)
--- NOTE | 2019-05-10 10:23 | CRITICAL CARE ADMISSION REPORT ---
HPI Date:: 05/10/19 Time:: 06:00 Reason for ICU Reason:: Acute hypoxic respiratory failure, suspected COPD exacerbation, profound hyperglycemia HPI: Samara Richards is a 54-year-old female with a past medical history significant for hypertension, rheumatoid arthritis, and COPD who reportedly stopped smoking approximately 2 years ago [facility] of 2 days of increasing dyspnea which was originally on exertion and has progressed to at rest. She also noted wheezing which was unrelieved with home albuterol nebulized treatment as well as Advair. O2 saturation was 89% on room air when EMS arrived for which they administered oxygen, nebulizer, and steroids en route. ICU team was consulted to evaluate the patient in room 414 for hypoxic respiratory failure with tachypnea RR 44 and tachycardia HR 144 with suspected COPD exacerbation. Patient transferred to ICU to monitor in case of need for intubation as she was on 100% supplemental O2 with non-invasive ventilation IPAP 18 EPAP 10 with an SPO2 of 89%. History obtained from:: Hospitalist, patient, and medical record. - Diagnosis/Plan (1) Acute respiratory failure with hypoxia Is this a current diagnosis for this admission?: Yes Plan: Support with non-invasive ventilation with possibility of need for intubation. Scheduled Xopenex and Atrovent nebulized treatments. Continue Solu-medrol x2 days, though decrease dose. Do not suspect this is cardiac related at this time, therefore, will hold off on obtaining cardiac enzymes. EKG without ischemia/infarction. (2) COPD exacerbation Is this a current diagnosis for this admission?: Yes Plan: Presumed COPD exacerbation. Nebs as and steroids as above. No empiric Abx at this time as patient has no leukocytosis and does not appear toxic. Perhaps profound hyperglycemia contributing to COPD exacerbation. (3) New onset type 2 diabetes mellitus Is this a current diagnosis for this admission?: Yes Plan: Newly diagnosed DM II with HgbA1c 10.9 this admission. Patient states she was not aware she had DM prior to this admission. Will need education prior to discharge. Insulin infusion for now to better control glucose and also see if improves resp failure. Evaluate insulin requirements and transition to SSI OR PO anti-hyperglycemic meds over next 24-48 hours. PRN anti-hypoglycemic meds. (4) Rheumatoid arthritis Qualifiers: Rheumatoid arthritis location: multiple sites Rheumatoid factor presence: unspecified presence Qualified Code(s): M06.9 - Rheumatoid arthritis, un specified Is this a current diagnosis for this admission?: Yes Plan: Resume home Methotrexate and Enbrel when clincially appropriate. (5) Essential hypertension Is this a current diagnosis for this admission?: Yes Plan: Will order prn anti-HTN meds if SBP >160. Anticipate BP improving as resp status improves. Past Medical History Cardiac Medical History: Reports: Hypertension Denies: Congestive Heart Failure, Coronary Artery Disease, Myocardial Infarction, Hyperlipidema Pulmonary Medical History: Reports: Chronic Obstructive Pulmonary Disease (COPD) Denies: Asthma, Respiratory Failure EENT Medical History: Reports: None Denies: Cataracts, Ears - Hearing aids Neurological Medical History: Reports: None Denies: Hemorrhagic CVA, Ischemic CVA, Seizures Endocrine Medical History: Reports: Obesity Denies: Diabetes Mellitus Type 1, Diabetes Mellitus Type 2, Hyperthyroidism, Hypothyroidism Renal/ Medical History: Reports: None Denies: Chronic Kidney Disease, Nephrolithiasis Malignancy Medical History: Reports: None GI Medical History: Reports: None Denies: Cirrhosis, Crohn's Disease, Gastroesophageal Reflux Disease, Hepatitis, Peptic Ulcer Disease, Ulcerative Colitis Musculoskeltal Medical History: Reports: Arthritis - Rheumatoid arthritis Denies: Fibromyalgia, Gout Skin Medical History: Reports: None Denies: Eczema, Psoriasis Psychiatric Medical History: Reports: Depression Denies: Alcohol Dependency, Substance Abuse, Tobacco Dependency Traumatic Medical History: Reports: None Hematology: Reports: None Denies: Anemia, Bleeding Tendencies Infectious Medical History: Reports: None Past Surgical History Past Surgical History: Reports: Cholecystectomy Social/Family History - Social History Lives with: Spouse/Significant other Smoking Status: Former Smoker - reports quitting 2 years ago Last Time Smoked: 2 years ago per pt report Frequency of Alcohol Use: Occasional Hx Recreational Drug Use: No Drugs: None Hx Prescription Drug Abuse: No - Medication/Allergies Home Medications: Albuterol Sulfate [Albuterol Sulfate 2.5mg/3 mL] 1 vial IH Q4 PRN #30 vial 07/01/17 Albuterol Sulfate [Ventolin 0.083% Neb 2.5 mg/3 mL Ampul] 1 inh NEB Q4H PRN 05/10/19 Etanercept [Enbrel] 25 mg SQ Q1 05/10/19 Methotrexate Sodium [Trexall] 5 mg PO [id number] 05/10/19 Allergies/Adverse Reactions: No Known Allergies Allergy (Verified 06/13/16 12:32) Review of Systems Constitutional: ABSENT: chills, fatigue, fever(s), headache(s), night sweats, weight gain, weight loss Eyes: ABSENT: visual disturbances Ears: ABSENT: hearing changes Nose, Mouth, and Throat: PRESENT: sore throat - only on 05/08/19, then was completely resolved on 05/09/19. ABSENT: headache(s), mouth pain, vertigo Cardiovascular: PRESENT: dyspnea on exertion. ABSENT: chest pain, edema, palpitations Respiratory: PRESENT: dyspnea. ABSENT: hemoptysis Gastrointestinal: ABSENT: abdominal pain, diarrhea, nausea, vomiting Genitourinary: ABSENT: difficulty urinating, dysuria Musculoskeletal: PRESENT: back pain - which has only been present for 2 days and only when pt takes a deep breath; patient points to bilateral posterior lower lobes. ABSENT: deformity, joint swelling, muscle weakness Integumentary: ABSENT: diaphoresis, erythema, lesions, pruritus, rash, wounds Neurological: ABSENT: abnormal gait, abnormal movements, abnormal speech, confusion, dizziness, frequent falls, lack of coordination, syncope Psychiatric: ABSENT: hallucinations, homidical ideation, suicidal ideation Endocrine: ABSENT: cold intolerance, heat intolerance, polydipsia, polyphagia Hematologic/Lymphatic: ABSENT: easy bleeding, easy bruising, lymphadenopathy Allergic/Immunologic: ABSENT: seasonal rhinorrhea Physical Exam Vital Signs: Temp Pulse Resp BP Pulse Ox 98.1 F 107 H 26 H 117/72 92 05/10/19 08:00 05/10/19 08:00 05/10/19 08:00 05/10/19 08:00 05/10/19 08:00 Intake & Output 05/09/19 05/10/19 05/11/19 06:59 06:59 06:59 Intake Total 1 Output Total 0 Balance 1 Weight 78.7 kg Weight/Height Weight 78.7 kg Height 5 ft 2 in General appearance: PRESENT: cooperative, mild distress Head exam: PRESENT: atraumatic, normocephalic Eye exam: PRESENT: conjunctiva pink, EOMI, PERRLA. ABSENT: periorbital swell ing, scleral icterus Ear exam: PRESENT: normal external ear exam Mouth exam: PRESENT: moist, neck supple, tongue midline Throat exam: ABSENT: post pharyngeal erythema Neck exam: PRESENT: full ROM. ABSENT: JVD, lymphadenopathy, tenderness, tracheal deviation Respiratory exam: PRESENT: accessory muscle use, crackles, tachypnea. ABSENT: chest wall tenderness, retraction, wheezes Cardiovascular exam: PRESENT: +S1, +S2, tachycardia - sinus tachycardia Pulses: PRESENT: normal radial pulses, +2 pedal pulses bilateral Vascular exam: PRESENT: normal capillary refill GI/Abdominal exam: PRESENT: normal bowel sounds, soft. ABSENT: tenderness Rectal exam: PRESENT: other - deferred Gentrourinary exam: ABSENT: erythema, lesions, urethral discharge Extremities exam: PRESENT: full ROM. ABSENT: calf tenderness, joint swelling, pedal edema, tenderness Musculoskeletal exam: PRESENT: full ROM, normal inspection. ABSENT: deformity, tenderness Neurological exam: PRESENT: alert, oriented to person, oriented to place, oriented to time, oriented to situation, CN II-XII grossly intact Psychiatric exam: PRESENT: appropriate affect Skin exam: PRESENT: dry, intact, warm Tubes/Lines: PRESENT: Other - none Laboratory/Radiographs Laboratory Results: 05/09/19 19:10 05/09/19 19:10 05/09/19 05/09/19 05/09/19 19:10 19:10 19:41 WBC 6.4 RBC 5.06 Hgb 14.1 Hct 42.2 MCV 84 MCH 27.9 MCHC 33.5 RDW 13.1 Plt Count 277 Seg Neutrophils % 75.8 Carbonic Acid HCO3/H2CO3 Ratio ABG pH ABG pCO2 ABG pO2 ABG HCO3 ABG O2 Saturation ABG Base Excess FiO2 Sodium 138.4 Potassium 4.2 Chloride 98 Carbon Dioxide 26 Anion Gap 14 BUN 14 Creatinine 0.61 Est GFR ( Amer) > 60 Glucose 446 H* Calcium 10.0 Total Bilirubin 0.7 AST 34 Alkaline Phosphatase 114 Total Protein 7.8 Albumin 4.6 Triglycerides Cholesterol LDL Cholesterol Direct VLDL Cholesterol HDL Cholesterol TSH Urine Color STRAW Urine Appearance SLIGHTLY-CLOUDY Urine pH 8.0 Ur Specific [place] 1.025 Urine Protein NEGATIVE Urine Glucose (UA) >=500 H Urine Ketones 20 H Urine Blood NEGATIVE Urine Nitrite NEGATIVE Ur Leukocyte Esterase NEGATIVE Urine WBC (Auto) 1 Urine RBC (Auto) 1 05/09/19 05/10/19 05/10/19 22:00 02:17 02:17 WBC RBC Hgb Hct MCV MCH MCHC RDW Plt Count Seg Neutrophils % Carbonic Acid Cancelled HCO3/H2CO3 Ratio Cancelled ABG pH Cancelled ABG pCO2 Cancelled ABG pO2 Cancelled ABG HCO3 Cancelled ABG O2 Saturation Cancelled ABG Base Excess Cancelled FiO2 Cancelled Sodium Potassium Chloride Carbon Dioxide Anion Gap BUN Creatinine Est GFR ( Amer) Glucose Calcium Total Bilirubin AST Alkaline Phosphatase Total Protein Albumin Triglycerides 91 Cholesterol 162.22 LDL Cholesterol Direct 71 VLDL Cholesterol 18.0 HDL Cholesterol 58 TSH 0.44 L Urine Color Urine Appearance Urine pH Ur Specific [place] Urine Protein Urine Glucose (UA) Urine Ketones Urine Blood Urine Nitrite Ur Leukocyte Esterase Urine WBC (Auto) Urine RBC (Auto) 05/10/19 06:45 WBC RBC Hgb Hct MCV MCH MCHC RDW Plt Count Seg Neutrophils % Carbonic Acid 0.73 L HCO3/H2CO3 Ratio 25:1 ABG pH 7.51 H ABG pCO2 24.4 L ABG pO2 56.2 L ABG HCO3 18.8 L ABG O2 Saturation 92.3 L ABG Base Excess -2.4 FiO2 70% Sodium Potassium Chloride Carbon Dioxide Anion Gap BUN Creatinine Est GFR ( Amer) Glucose Calcium Total Bilirubin AST Alkaline Phosphatase Total Protein Albumin Triglycerides Cholesterol LDL Cholesterol Direct VLDL Cholesterol HDL Cholesterol TSH Urine Color Urine Appearance Urine pH Ur Specific [place] Urine Protein Urine Glucose (UA) Urine Ketones Urine Blood Urine Nitrite Ur Leukocyte Esterase Urine WBC (Auto) Urine RBC (Auto) Impressions: Chest X-Ray 05/09/19 19:22 IMPRESSION: No evidence of acute cardiopulmonary disease. All labs, radiographs, diagnostic studies and EKGs were personally reviewed: Yes Critical Time Critical Time (minutes): 60 -: The care of a critically ill patient is dynamic. This note represents a static moment in the admission process. orders and treatments may be given simulataneously and urgentl, and time is not patient admitting representative of the treatment process. This patient requires Critical Care secondary to life threating organ or limb dysfunction. Without the need for Critical Care services, the patient is at risk for increasid mortality and morbidity.
[2019-05-10] MEDS: IPRATROPIUM BROMIDE 0.02% NEB 0.5 MG/2.5 ML AMPUL NEB SCH ×2 (10:56→11:50)
[2019-05-10] MEDS: LEVALBUTEROL HCL NEB 1.25 MG/3 ML AMPUL NEB SCH ×2 (10:57→11:50)
[2019-05-10] MEDS: DOCUSATE SODIUM 100 MG CAPSULE PO SCH ×2 (11:19→17:45)
[2019-05-10] MEDS: LISINOPRIL 10 MG TABLET PO SCH (11:19)
[2019-05-10] MEDS ORDERED: RINGERS SOLUTION,LACTATED 1,000 ML IV ONE (14:50)
--- NOTE | 2019-05-10 15:23 | RADIOLOGY REPORT (SQ) ---
EXAM DESCRIPTION: CHEST SINGLE VIEW COMPLETED DATE/TIME: 05/10/2019 3:02 pm REASON FOR STUDY: Respiratory failure COMPARISON: 05/09/2019 EXAM PARAMETERS: NUMBER OF VIEWS: One view. TECHNIQUE: Single frontal radiographic view of the chest acquired. RADIATION DOSE: NA LIMITATIONS: None. FINDINGS: LUNGS AND PLEURA: No opacities, masses or pneumothorax. No pleural effusion. MEDIASTINUM AND HILAR STRUCTURES: No masses. Contour normal. HEART AND VASCULAR STRUCTURES: Heart normal in size. Normal vasculature. BONES: No acute findings. HARDWARE: None in the chest. OTHER: No other significant finding. IMPRESSION: NO ACUTE RADIOGRAPHIC FINDING IN THE CHEST. TECHNICAL DOCUMENTATION: JOB ID: [id number] [employer]- All Rights Reserved Reading location - IP/workstation name: [email or web address]
[2019-05-10] MEDS: IPRATROPIUM/ALBUTEROL 0.5-2.5 MG/3 ML AMPUL NEB SCH ×3 (15:57→23:56)
[2019-05-10] MEDS ORDERED: METHOCARBAMOL 500 MG in DEXTROSE 5%-WATER 50 ML IV PRN (16:00)
[2019-05-10 19:51] LABS: ANION GAP 13 (5-19); BLOOD UREA NITROGEN 21 mg/dL (7-20); CALCIUM 10.2 mg/dL (8.4-10.2); CARBON DIOXIDE 25 mmol/L (22-30); CHLORIDE 101 mmol/L (98-107); GLUCOSE 179 mg/dL (75-110); PHOSPHORUS 4.5 mg/dL (2.5-4.5); POTASSIUM 4.7 mmol/L (3.6-5.0)
--- NOTE | 2019-05-10 20:56 | Progress Note ---
Provider Note Provider Note: I personally examined the patient and evaluated labs, data and x-rays. Discussed the case and care and findings by [facility] HISTORY PROFESSOR Art Flaherty. Agree with plan and findings and endorse the care provided. Note is a follow-up due to the complex nature of her presentation and to document follow-up care. Patient has improved on BiPAP and was able to be transitioned to nasal cannula high flow. She was able to tolerate this for about an hour but soon became tired and had to go back on BiPAP therapy. Examination she has significant wheezing bilaterally with poor inspiratory exchange. She was quite ill last evening with a concern for needing mechanical ventilation. She has improved from that standpoint. She was hypoxic when being reinitiated on BiPAP and a chest x-ray was done which did not show pneumothorax and showed no infiltrates. She has been hemodynamically non-labile but very dependent on oxygen therapy. Beta agonist and ipratropium have been ordered. She states that she stopped smoking approximately 2 to 3 years ago She is on immune suppressing medications including methotrexate. We have held these until her situation improves. And concerned that she might have underlying interstitial lung disease related to her rheumatoid arthritis or methotrexate induced pneumonitis. As stated above we have held this. She is in more stable condition we will obtain a CT scan to evaluate. Continue her on steroids which will both help the rheumatoid arthritis and the pneumonitis. Continue in the ICU until she is improved. Total critical care time excluding procedures was 50 minutes.
[2019-05-10 22:51] LABS: ANION GAP 13 (5-19); BLOOD UREA NITROGEN 20 mg/dL (7-20); CARBON DIOXIDE 23 mmol/L (22-30); CHLORIDE 102 mmol/L (98-107); GLUCOSE 196 mg/dL (75-110); PHOSPHORUS 4.9 mg/dL (2.5-4.5); POTASSIUM 4.5 mmol/L (3.6-5.0)
[2019-05-11 02:48] LABS: ANION GAP 13 (5-19); BLOOD UREA NITROGEN 22 mg/dL (7-20); CALCIUM 9.9 mg/dL (8.4-10.2); CARBON DIOXIDE 25 mmol/L (22-30); CHLORIDE 102 mmol/L (98-107); GLUCOSE 200 mg/dL (75-110); PHOSPHORUS 4.8 mg/dL (2.5-4.5); POTASSIUM 4.9 mmol/L (3.6-5.0)
[2019-05-11 04:17] LABS: HEMATOCRIT 37.4 % (36.0-47.0); HEMOGLOBIN 12.7 g/dL (12.0-15.5); MEAN CORPUSCULAR HGB CONC 34.1 g/dL (32.0-36.0); MEAN CORPUSCULAR VOLUME 82 fl (80-97); PLATELET COUNT 298 10^3/uL (150-450); RED BLOOD COUNT 4.54 10^6/uL (3.72-5.28); RED CELL DISTRIBUTION WIDTH 13.3 % (11.5-14.0)
[2019-05-11] MEDS: IPRATROPIUM/ALBUTEROL 0.5-2.5 MG/3 ML AMPUL NEB SCH ×6 (04:20→23:55)
[2019-05-11 04:34] LABS: ANION GAP 12 (5-19); BLOOD UREA NITROGEN 23 mg/dL (7-20); CALCIUM 9.7 mg/dL (8.4-10.2); CARBON DIOXIDE 23 mmol/L (22-30); CHLORIDE 103 mmol/L (98-107); GLUCOSE 187 mg/dL (75-110); PHOSPHORUS 4.7 mg/dL (2.5-4.5); POTASSIUM 4.5 mmol/L (3.6-5.0)
[2019-05-11] MEDS: HEPARIN SOD (PORCINE) 5,000 UNIT/ML 1 ML VIAL SUBCUT SCH ×3 (05:20→21:20)
[2019-05-11] MEDS: BUDESONIDE NEB 0.5 MG/2 ML AMPUL NEB SCH ×2 (07:44→20:55)
[2019-05-11] MEDS: INSULIN LISPRO 100 UNIT/ML 3 ML VIAL SUBCUT SCH ×3 (11:43→23:45)
[2019-05-11] MEDS: DOCUSATE SODIUM 100 MG CAPSULE PO SCH ×2 (11:45→19:31)
[2019-05-11] MEDS: LISINOPRIL 10 MG TABLET PO SCH (11:54)
[2019-05-11] MEDS: METHYLPREDNISOLONE INJ 40 MG/1 ML SDV IV SCH ×2 (11:55→21:20)
[2019-05-11 12:00] LABS: ANION GAP 12 (5-19); BLOOD UREA NITROGEN 25 mg/dL (7-20); CALCIUM 9.6 mg/dL (8.4-10.2); CARBON DIOXIDE 26 mmol/L (22-30); CHLORIDE 101 mmol/L (98-107); GLUCOSE 147 mg/dL (75-110); PHOSPHORUS 4.7 mg/dL (2.5-4.5); POTASSIUM 4.6 mmol/L (3.6-5.0)
--- NOTE | 2019-05-11 14:52 | RADIOLOGY REPORT (SQ) ---
EXAM DESCRIPTION: CT CHEST WITH COMPLETED DATE/TIME: 05/11/2019 2:31 pm REASON FOR STUDY: Pulmonary fibrosis methotrexate COMPARISON: Chest x-ray dated 05/10/2019 TECHNIQUE: CT scan of the chest performed using helical scanning technique with dynamic intravenous contrast injection. Images reviewed with lung, soft tissue and bone windows. Reconstructed coronal and sagittal MPR and MIP images reviewed. All images stored on PACS. All CT scanners at this facility use dose modulation, iterative reconstruction, and/or weight based d osing when appropriate to reduce radiation dose to as low as reasonably achievable (ALARA). [facility]: Dose Right [facility]: CareDose [facility]: Dose Right [facility]: Teradose 4D [facility]: [employer] CONTRAST TYPE AND DOSE: contrast/concentration: Isovue 350.00 mg/ml; Total Contrast Delivered: 80.0 ml; Total Saline Delivered: 55.0 ml RENAL FUNCTION: Creatinine 0.68, BUN 23 RADIATION DOSE: CT Rad equipment meets quality standard of care and radiation dose reduction techniq ues were employed. CTDIvol: 10.4 mGy. DLP: 414 mGy-cm. . LIMITATIONS: None. FINDINGS: LUNGS AND PLEURA: There is atelectasis in the anteromedial aspect of the right upper lobe and left upper lobe. The areas of consolidation demonstrate no air bronchograms. Lung lubin are ot herwise grossly clear. No pneumothorax or pleural effusion. HILAR AND MEDIASTINAL STRUCTURES: No identified masses or abnormal nodes. HEART AND VASCULAR STRUCTURES: No aneurysm or dissection. No central pulmonary emboli. No pericardi al effusion. HARDWARE: None in the chest. UPPER ABDOMEN: There is fatty infiltration of the liver. THYROID AND OTHER SOFT TISSUES: No masses. No adenopathy. BONES: No significant finding. OTHER: No other significant finding. IMPRESSION: There is partial atelectasis in both upper lobes as described. No other significant fin dings. TECHNICAL DOCUMENTATION: JOB ID: [id number] Quality ID # [id number]: Final reports with documentation of one or more dose reduction techniques (e.g., Au tomated exposure control, adjustment of the mA and/or kV according to patient size, use of iterative reconstruction technique) 2010 [employer]- All Rights Reserved Reading location - IP/workstation name: [email or web address]
[2019-05-11 15:36] LABS: ANION GAP 13 (5-19); BLOOD UREA NITROGEN 24 mg/dL (7-20); CALCIUM 9.5 mg/dL (8.4-10.2); CARBON DIOXIDE 24 mmol/L (22-30); CHLORIDE 99 mmol/L (98-107); GLUCOSE 217 mg/dL (75-110); PHOSPHORUS 3.4 mg/dL (2.5-4.5); POTASSIUM 4.6 mmol/L (3.6-5.0)
--- NOTE | 2019-05-11 17:47 | PDOC CRITICAL CARE PROG REPORT ---
General Date:: 05/11/19 ICU Day:: 2 Hospital Day:: 2 Resuscitation Status: Full Code Medical Power of Washer [employer]: : Luis Daniel Richards Events in the past 12 to 24 Hours:: Patient had been weaned to high-flow NC yesterday but did not tolerate after 1 hour. Placed on BiPap with high FiO2. This is now reduced. She endorses subjective improvement. Insulin drip reduced to 2 units/hr with glucose below 150 mg/dL Review of systems relevant to events:: Hemodynamics are non-labile. Patient transitioned off BiPAP to high flow nasal cannula. Reason for ICU Addmission:: Acute hypoxic respiratory failure, suspected COPD exacerbation, profound hyperglycemia - Medications: Medications reviewed and adjusted accordingly: Yes Vasopressors:: None Physical Exam Vital Signs: Temp Pulse Resp BP Pulse Ox 98.0 F 105 H 21 H 111/56 L 99 05/11/19 08:00 05/11/19 08:00 05/11/19 08:00 05/11/19 08:00 05/11/19 08:00 Intake & Output 05/10/19 05/11/19 05/12/19 06:59 06:59 06:59 Intake Total 1296 Output Total 800 Balance 496 Weight 78.7 kg 80.5 kg Weight/Height Weight 80.5 kg Height 5 ft 2 in General appearance: PRESENT: no acute distress, well-developed, well-nourished Exam: Non-intubated, non-toxic, ill appearing 54 yo white female, nad, AA&OX3 Eye exam: PRESENT: conjunctiva pink, EOMI, PERRLA. ABSENT: conjunctival injection, nystagmus, scleral icterus Neck exam: ABSENT: carotid bruit, JVD, lymphadenopathy, thyromegaly Respiratory exam: PRESENT: clear to auscultation willian, wheezes - on left but improved. Better overall air entry. ABSENT: accessory muscle use, rales, rhonchi Cardiovascular exam: PRESENT: RRR, +S1, +S2 Pulses: PRESENT: +1 pedal pulses bilateral Vascular exam: PRESENT: normal capillary refill. ABSENT: pallor GI/Abdominal exam: PRESENT: normal bowel sounds, soft. ABSENT: ascites, distended, guarding, mass, organolmegaly, rebound, tenderness Rectal exam: PRESENT: deferred Extremities exam: ABSENT: pedal edema Musculoskeletal exam: ABSENT: deformity, dislocation Neurological exam: PRESENT: alert, awake, oriented to person, oriented to place, oriented to time, CN II-XII grossly intact. ABSENT: motor sensory deficit Psychiatric exam: PRESENT: appropriate affect, normal mood Focused psych exam: ABSENT: pressured speech, psychomotor agitation, restlessness Skin exam: PRESENT: dry, intact, normal color, warm. ABSENT: cyanosis, mottled, pallor, rash Tubes/Lines: PRESENT: Other - BiPap 08/01 Laboratory/Radiographs Laboratory Results: 05/11/19 03:57 05/11/19 03:57 05/10/19 05/10/19 05/11/19 18:43 21:54 02:01 WBC RBC Hgb Hct MCV MCH MCHC RDW Plt Count Sodium 139.4 137.5 139.6 Potassium 4.7 4.5 4.9 Chloride 101 102 102 Carbon Dioxide 25 23 25 Anion Gap 13 13 13 BUN 21 H 20 22 H Creatinine 0.73 0.69 0.72 Est GFR ( Amer) > 60 > 60 > 60 Glucose 179 H 196 H 200 H Calcium 10.2 10.0 9.9 Phosphorus 4.5 4.9 H 4.8 H Magnesium 2.1 2.1 2.2 05/11/19 05/11/19 03:57 03:57 WBC 13.0 H D RBC 4.54 Hgb 12.7 Hct 37.4 MCV 82 MCH 28.0 MCHC 34.1 RDW 13.3 Plt Count 298 Sodium 138.4 Potassium 4.5 Chloride 103 Carbon Dioxide 23 Anion Gap 12 BUN 23 H Creatinine 0.68 Est GFR ( Amer) > 60 Glucose 187 H Calcium 9.7 Phosphorus 4.7 H Magnesium 2.3 Impressions: Chest X-Ray 05/10/19 00:00 IMPRESSION: NO ACUTE RADIOGRAPHIC FINDING IN THE CHEST. Chest X-Ray 05/09/19 19:22 IMPRESSION: No evidence of acute cardiopulmonary disease. Chest X-Ray 05/10/19 00:00 IMPRESSION: NO ACUTE RADIOGRAPHIC FINDING IN THE CHEST. Chest CT 05/11/19 00:00 IMPRESSION: There is partial atelectasis in both upper lobes as described. No other significant findings. All labs, radiographs, diagnostic studies and EKGs were personally reviewed: Yes In addition, reports of radiographic and diagnostic studies were read: Yes Assessment and Plan - Diagnosis (1) Acute respiratory failure with hypoxia Is this a current diagnosis for this admission?: Yes Plan: Improving. Appears to be reactive airway disease. Given her early emphysema and AMATO have ordered A1AT genotype (2) Acute exacerbation of chronic obstructive pulmonary disease (COPD) Is this a current diagnosis for this admission?: Yes Plan: Resolving (3) Immunosuppression due to drug therapy Is this a current diagnosis for this admission?: Yes (4) New onset type 2 diabetes mellitus Is this a current diagnosis for this admission?: Yes (5) History of rheumatoid arthritis Is this a current diagnosis for this admission?: Yes Plan Summary: 05.11.19: Patient continues to improve overall and has been transitioned to high flow nasal cannula. Plan will be to continue to wean this. We ordered a CT scan of the chest to rule out methotrexate induced fibrosis. There was no evidence of this. There was anterior atelectasis but no interstitial disease. Does have enlarged lung lubin. CT of the chest also revealed fatty infiltration of the liver. Given her new onset type 2 diabetes this most likely represents a metabolic syndrome especially with her obesity. Have counseled her on appropriate glucose control and its effect on the improvement in AMATO. At this point we will continue steroids. We will continue CPAP at night and use high flow to maintain improvement in atelectasis. Have ordered dietitian consult for diabetes management. I have also ordered diabetic nurse educator. With the recent use of contrast have not used metformin. Continue glucose control with coverage scale for now. We will check lipid profile. TSH is already been checked and is slightly low. Critical Time Critical Time (minutes): 40 Level of Care: ICU Anticipated discharge: Home Within: within 48 hours -: 1. The care of a critical patient is a dynamic process. This note is a professional healthcare representative synopsis but static in nature. The timeframe for treatments given in order is not necessary the actual time these treatments may have been done. 2. This patient requires critical care secondary to ongoing requirements for therapy not offered or safe outside the critical care environment. Transfer to a lower level of care with altered life or limb morbidity and mortality. 3. Multidisciplinary rounds completed. 4. ABCDE bundle addressed.
[2019-05-12 03:32] LABS: HEMATOCRIT 37.4 % (36.0-47.0); HEMOGLOBIN 12.6 g/dL (12.0-15.5); MEAN CORPUSCULAR HEMOGLOBIN 28.1 pg (27.0-33.4); MEAN CORPUSCULAR HGB CONC 33.7 g/dL (32.0-36.0); MEAN CORPUSCULAR VOLUME 84 fl (80-97); PLATELET COUNT 271 10^3/uL (150-450); RED BLOOD COUNT 4.48 10^6/uL (3.72-5.28); RED CELL DISTRIBUTION WIDTH 13.2 % (11.5-14.0); WHITE BLOOD COUNT 9.3 10^3/uL (4.0-10.5)
[2019-05-12 03:57] LABS: ANION GAP 12 (5-19); BLOOD UREA NITROGEN 28 mg/dL (7-20); CALCIUM 9.8 mg/dL (8.4-10.2); CARBON DIOXIDE 23 mmol/L (22-30); CHLORIDE 101 mmol/L (98-107); CHOLESTEROL 152.29 mg/dL (0-200); GLUCOSE 294 mg/dL (75-110); POTASSIUM 4.9 mmol/L (3.6-5.0); TRIGLYCERIDES 219 mg/dL (<150)
[2019-05-12] MEDS: IPRATROPIUM/ALBUTEROL 0.5-2.5 MG/3 ML AMPUL NEB SCH ×2 (04:02→08:21)
[2019-05-12 04:07] LABS: DIRECT LDL 64 mg/dL (<100)
[2019-05-12 04:15] LABS: VLDL CHOLESTEROL 43.8 mg/dL (10-31)
[2019-05-12] MEDS: INSULIN LISPRO 100 UNIT/ML 3 ML VIAL SUBCUT SCH ×3 (06:25→17:56)
[2019-05-12] MEDS: HEPARIN SOD (PORCINE) 5,000 UNIT/ML 1 ML VIAL SUBCUT SCH (06:25)
[2019-05-12] MEDS: BUDESONIDE NEB 0.5 MG/2 ML AMPUL NEB SCH (08:21)
[2019-05-12] MEDS ORDERED: INSULIN GLARGINE,HUM.REC.ANLOG 1,000 UNIT/10 ML VIAL (PYX) SUBCUT ONE (11:30)
[2019-05-12] MEDS: DOCUSATE SODIUM 100 MG CAPSULE PO SCH ×2 (11:31→17:58)
[2019-05-12] MEDS: LISINOPRIL 10 MG TABLET PO SCH (11:31)
[2019-05-12] MEDS: SALMETEROL XINAFOATE DISKUS 50 MCG/1 DOSE 28 DOSE IH SCH ×2 (16:37→22:56)
[2019-05-12] MEDS: ENOXAPARIN SODIUM INJ 40 MG/0.4 ML DISP.SYRIN SUBCUT SCH (16:37)
--- NOTE | 2019-05-12 17:20 | PDOC CRITICAL CARE PROG REPORT ---
General Date:: 05/12/19 ICU Day:: 3 Hospital Day:: 3 Resuscitation Status: Full Code Medical Power of Campus Coordinator: : Luis Daniel Richards Events in the past 12 to 24 Hours:: 05.12.19: Patient has remained successfully off noninvasive ventilation. She was on CPAP last night because of atelectasis but has been transitioned safely to nasal cannula throughout the day. He denies any pain. Denies any dyspnea cough or hemoptysis. 05.11.19:Patient had been weaned to high-flow NC yesterday but did not tolerate after 1 hour. Placed on BiPap with high FiO2. This is now reduced. She endorses subjective improvement. Insulin drip reduced to 2 units/hr with glucose below 150 mg/dL Review of systems relevant to events:: Hemodynamics are non-labile. Patient transitioned off BiPAP to high flow nasal cannula. Review of systems relevant to events:: We discussed the patient's review of systems unique to her asthma and lung disease. She has been labeled with asthma in the past. Her lung doctor was in [place] but she has not established any connection to a pulmonary physician in the area. Her symptoms would fit and intermittent type of asthma. She seldom has night time events and has minimal need for rescue therapy. He is never been hospitalized and has never been intubated. She is not aware of her complete asthma medications. She underwent diabetic education and nutrition counseling today. Reason for ICU Addmission:: Acute hypoxic respiratory failure, suspected COPD exacerbation, profound hyperglycemia - Medications: Medications reviewed and adjusted accordingly: Yes Vasopressors:: None Physical Exam Vital Signs: Temp Pulse Resp BP Pulse Ox 97.2 F 89 18 117/69 97 05/12/19 08:00 05/12/19 10:00 05/12/19 14:11 05/12/19 14:11 05/12/19 14:11 Intake & Output 05/11/19 05/12/19 05/13/19 06:59 06:59 06:59 Intake Total 1296 20 Output Total 800 1200 0 Balance 496 -1180 0 Weight 80.5 kg 78.8 kg Weight/Height Weight 78.8 kg Height 5 ft 2 in General appearance: PRESENT: no acute distress, cooperative, well-developed, well-nourished Head exam: PRESENT: atraumatic, normocephalic Eye exam: PRESENT: conjunctiva pink, EOMI, PERRLA. ABSENT: conjunctival inject ion, nystagmus, scleral icterus Ear exam: PRESENT: normal external ear exam Mouth exam: PRESENT: moist, neck supple Teeth exam: ABSENT: poor dentation Throat exam: ABSENT: post pharyngeal erythema Neck exam: PRESENT: full ROM. ABSENT: carotid bruit, JVD, lymphadenopathy, th yromegaly Respiratory exam: PRESENT: clear to auscultation willian, unlabored. ABSENT: rales, rhonchi, tachypnea, wheezes Cardiovascular exam: PRESENT: RRR. ABSENT: diastolic murmur, rubs, systolic murmur Pulses: PRESENT: +2 pedal pulses bilateral Vascular exam: PRESENT: normal capillary refill. ABSENT: pallor GI/Abdominal exam: PRESENT: normal bowel sounds, soft. ABSENT: ascites, distended, guarding, mass, organolmegaly, rebound, tenderness Rectal exam: PRESENT: deferred Extremities exam: ABSENT: pedal edema, tenderness Musculoskeletal exam: ABSENT: deformity, dislocation Neurological exam: PRESENT: alert, awake, oriented to person, oriented to time, oriented to situation, CN II-XII grossly intact. ABSENT: motor sensory deficit Psychiatric exam: PRESENT: appropriate affect, normal mood Focused psych exam: ABSENT: psychomotor agitation, restlessness Skin exam: PRESENT: dry, intact, warm. ABSENT: cyanosis, rash Laboratory/Radiographs Laboratory Results: 05/12/19 03:17 05/12/19 03:17 05/12/19 05/12/19 03:17 03:17 WBC 9.3 RBC 4.48 Hgb 12.6 Hct 37.4 MCV 84 MCH 28.1 MCHC 33.7 RDW 13.2 Plt Count 271 Sodium 136.1 L Potassium 4.9 Chloride 101 Carbon Dioxide 23 Anion Gap 12 BUN 28 H Creatinine 0.73 Est GFR ( Amer) > 60 Glucose 294 H Calcium 9.8 Phosphorus 5.0 H Magnesium 2.4 H Triglycerides 219 H Cholesterol 152.29 LDL Cholesterol Direct 64 VLDL Cholesterol 43.8 H HDL Cholesterol 44 Impressions: Chest X-Ray 05/10/19 00:00 IMPRESSION: NO ACUTE RADIOGRAPHIC FINDING IN THE CHEST. Chest CT 05/11/19 00:00 IMPRESSION: There is partial atelectasis in both upper lobes as described. No other significant findings. All labs, radiographs, diagnostic studies and EKGs were personally reviewed: Yes In addition, reports of radiographic and diagnostic studies were read: Yes Assessment and Plan - Diagnosis (1) Acute respiratory failure with hypoxia Is this a current diagnosis for this admission?: Yes Plan: Resolved. Appears to be exacerbation of reactive airway disease with Asthma. Ann spect viral pneumonitis. (2) Asthma, intermittent with acute exacerbation Qualifiers: Asthma severity: mild Qualified Code(s): J45.21 - Mild intermittent asthma with (acute) exacerbation Is this a current diagnosis for this admission?: Yes (3) Acute exacerbation of chronic obstructive pulmonary disease (COPD) Is this a current diagnosis for this admission?: Yes Plan: Resolved. Changed to acute exacerbation of mixed Asthma/COPD (4) Immunosuppression due to drug therapy Is this a current diagnosis for this admission?: Yes Plan: Will need to restart when steroids are weaned (5) New onset type 2 diabetes mellitus Is this a current diagnosis for this admission?: Yes (6) History of rheumatoid arthritis Is this a current diagnosis for this admission?: Yes Plan: Start immunosuppresive medications when steroids are weaned Plan Summary: 05.12.19: Patient's symptoms are resolving and she has been transitioned to oral steroid therapy. Establish contact with Dr. Green and have referred her to him when she is discharged as an outpatient. She received diabetic education and nutrition education today. She will be followed up with her 's diabetic physician as well. Patient has established rheumatoid arthritis and has been on immunosuppressive medications. Will need to be re-introduced when her steroids were weaned. She is now off all oxygen therapy. Have established treatment for intermittent asthma with inhaled steroid and long-acting beta agonist therapy. In addition she has as needed short acting beta agonist therapy. Meets criteria for downgrade and will be transferred to floor with the hopes to discharge from the hospital within 24 to 36 hours. 19: Patient continues to improve overall and has been transitioned to high flow nasal cannula. Plan will be to continue to wean this. We ordered a CT scan of the chest to rule out methotrexate induced fibrosis. There was no evidence of this. There was anterior atelectasis but no interstitial disease. Does have enlarged lung lubin. CT of the chest also revealed fatty infiltration of the liver. Given her new onset type 2 diabetes this most likely represents a metabolic syndrome especially with her obesity. Have counseled her on appropriate glucose control and its effect on the improvement in AMATO. At this point we will continue steroids. We will continue CPAP at night and use high flow to maintain improvement in atelectasis. Have ordered dietitian consult for diabetes management. I have also ordered diabetic nurse educator. With the recent use of contrast have not used metformin. Continue glucose control with coverage scale for now. We will check lipid profile. TSH is already been checked and is slightly low. Critical Time Critical Time (minutes): 0 - 51748 Level of Care: MEDICAL Anticipated discharge: Home Within: within 36 hours -: 1. The care of a critical patient is a dynamic process. This note is a civil rights representative synopsis but static in nature. The timeframe for treatments given in order is not necessary the actual time these treatments may have been done. 2. This patient requires critical care secondary to ongoing requirements for therapy not offered or safe outside the critical care environment. Transfer to a lower level of care with altered life or limb morbidity and mortality. 3. Multidisciplinary rounds completed. 4. ABCDE bundle addressed.
[2019-05-12] MEDS: PREDNISONE 20 MG TABLET PO SCH (17:58)
--- NOTE | 2019-05-12 19:09 | Progress Note ---
Provider Note Provider Note: I received signout from data analyst Dr. Bender regarding this patient will be transferred to the floor. I evaluated patient and patient is stable at this time. Patient has active wheezing but is not working to breathe. We will continue with nebulizer treatments. Continue tx for asthma.
[2019-05-13] MEDS: INSULIN LISPRO 100 UNIT/ML 3 ML VIAL SUBCUT SCH ×5 (00:30→17:48)
[2019-05-13] MEDS: ALBUTEROL SULFATE 0.083% NEB 2.5 MG/3 ML AMPUL NEB PRN (08:45)
[2019-05-13] MEDS: DOCUSATE SODIUM 100 MG CAPSULE PO SCH ×2 (09:23→17:48)
[2019-05-13] MEDS: LISINOPRIL 10 MG TABLET PO SCH (09:23)
[2019-05-13] MEDS: SALMETEROL XINAFOATE DISKUS 50 MCG/1 DOSE 28 DOSE IH SCH (09:24)
[2019-05-13] MEDS: ENOXAPARIN SODIUM INJ 40 MG/0.4 ML DISP.SYRIN SUBCUT SCH (09:24)
[2019-05-13] MEDS: PREDNISONE 20 MG TABLET PO SCH ×2 (09:24→17:47)
[2019-05-13] MEDS ORDERED: INSULIN GLARGINE,HUM.REC.ANLOG 1,000 UNIT/10 ML VIAL SUBCUT SCH (10:00)
[2019-05-13] MEDS ORDERED: DEXTROSE 40% GEL 15 GM TUBE PO PRN ×2 (15:50)
--- NOTE | 2019-05-13 15:53 | PDOC PROGRESS REPORT ---
Subjective Progress Note for:: 05/13/19 Subjective:: Patient is doing well today. Denies any shortness of breath currently. Patient is willing to use insulin if needed. Reason For Visit: ACUTE EXACERBATION OF COPD, HYPERGLYCEMIA Physical Exam Vital Signs: Temp Pulse Resp BP Pulse Ox 98.3 F 80 18 111/66 94 05/13/19 12:00 05/13/19 12:00 05/13/19 12:00 05/13/19 12:00 05/13/19 12:00 Intake & Output 05/12/19 05/13/19 05/14/19 06:59 06:59 06:59 Intake Total 20 440 118 Output Total 1200 300 Balance -1180 140 118 Weight 78.8 kg 76 kg General appearance: PRESENT: no acute distress, cooperative Neck exam: ABSENT: JVD Respiratory exam: PRESENT: unlabored, wheezes - Improved from yesterday. ABSENT: symmetrical, tachypnea Cardiovascular exam: PRESENT: RRR, +S1, +S2. ABSENT: tachycardia GI/Abdominal exam: PRESENT: normal bowel sounds, soft. ABSENT: rebound, rigid, tenderness Neurological exam: PRESENT: alert, awake, oriented to person, oriented to place, oriented to time Results Laboratory Results: 05/12/19 03:17 05/12/19 03:17 Impressions: Chest X-Ray 05/10/19 00:00 IMPRESSION: NO ACUTE RADIOGRAPHIC FINDING IN THE CHEST. Chest CT 05/11/19 00:00 IMPRESSION: There is partial atelectasis in both upper lobes as described. No other significant findings. Assessment and Plan - Diagnosis (1) Asthma with COPD with exacerbation Is this a current diagnosis for this admission?: Yes Plan: Improving On LABA now Continue nebulizers prn For rescue Continue prednisone (2) Acute respiratory failure with hypoxia Is this a current diagnosis for this admission?: Yes Plan: Improving now. We will continue to wean off oxygen. (3) History of rheumatoid arthritis Is this a current diagnosis for this admission?: Yes Plan: Start immunosuppresive medications when steroids are weaned (4) New onset type 2 diabetes mellitus Is this a current diagnosis for this admission?: Yes Plan: Blood sugar still uncontrolled on Lantus 10 units daily I will start patient on pre-meal lispro 3 units AC and reschedule Lantus for nightly dosing from tomorrow Ultimately, patient's hemoglobin A1c is over 10 and as such patient will require insulin on discharge Patient received diabetic education today - Time Time Spent with patient: Less than 15 minutes
[2019-05-14] MEDS: INSULIN LISPRO 100 UNIT/ML 3 ML VIAL SUBCUT SCH ×5 (00:43→13:59)
[2019-05-14] MEDS: SALMETEROL XINAFOATE DISKUS 50 MCG/1 DOSE 28 DOSE IH SCH ×2 (00:45→09:51)
[2019-05-14] MEDS ORDERED: INSULIN NPH (ISOPHANE), HUMAN 100 UNIT/ML 3 ML SUBCUT ONE (09:00)
[2019-05-14] MEDS: ENOXAPARIN SODIUM INJ 40 MG/0.4 ML DISP.SYRIN SUBCUT SCH (09:48)
[2019-05-14] MEDS: PREDNISONE 20 MG TABLET PO SCH (09:48)
[2019-05-14] MEDS: LISINOPRIL 10 MG TABLET PO SCH (09:48)
[2019-05-14] MEDS: DOCUSATE SODIUM 100 MG CAPSULE PO SCH (09:48)
[2019-05-14] MEDS: ALBUTEROL SULFATE 0.083% NEB 2.5 MG/3 ML AMPUL NEB PRN (10:16)
--- NOTE | 2019-05-14 12:23 | PDOC DISCHARGE SUMMARY ---
Impression - Admit/DC Date/PCP Admission Date/Primary Care Provider: 05/09/19 23:51 DEWEY HAYES Discharge Date: 05/14/19 - Discharge Diagnosis (1) Asthma with COPD with exacerbation Is this a current diagnosis for this admission?: Yes (2) Acute respiratory failure with hypoxia Is this a current diagnosis for this admission?: Yes (3) History of rheumatoid arthritis Is this a current diagnosis for this admission?: Yes (4) New onset type 2 diabetes mellitus Is this a current diagnosis for this admission?: Yes - Assessment Summary: Patient was evaluated for shortness of breath. Upon presentation patient was noted to be very tachypneic with significant work of breathing. Patient was subsequently put on a BiPAP and admitted to the ICU for increased work of breathing. ABG showed hypoxia with PO2 of 56 and respiratory alkalosis on patient's tachypnea. Intubation was never required. Patient was given steroids and started on frequent nebulizer treatments with subsequent improvement in her respiratory status. Of note chest x-ray was unremarkable at that time. Accu- Cheks revealed significant hyperglycemia blood sugars ranging in the 400s and 500s. This was diagnostic new onset diabetes mellitus type 2. Hemoglobin A1c was 10. Patient was subsequently started on Lantus 10 units daily. As patient was weaned off BiPAP onto nasal cannula subsequently transferred from the ICU to the floors. On the floors, patient continued to improve in terms of her respiratory status and she was weaned off oxygen. Patient has sustained in the mid 90s on room air. Patient has received about 4-1/2 days of steroid therapy which has been discontinued at this time of discharge. For patient's asthma with COPD, I have started patient on Symbicort to be taken twice a day and patient has been advised to continue to use her rescue inhalers and her rescue nebulizers as needed. I have also given patient's a prescription to renew her nebulizer solution. For patient's new onset diabetes type 2, I have transition patient to a regimen of lispro 3 units AC and Lantus 10 units nightly. Patient has received adequate diabetes education from our certified adapted physical educator and patient feels comfortable using insulin and has administered it successfully several times with the nurse. Given patient scripts for lancets, glucometer and strips. Patient is to follow-up with her primary care provider for further management of her conditions. - Additional Information Resuscitation Status: Full Code Discharge Diet: Regular Discharge Activity: Activity As Tolerated Referrals: ERENDIRA GREEN MD [ACTIVE STAFF] - (Please schedule appointment with Dr. Green for follow-up of your asthma) DAINA KISER FNP [Primary Care Provider] - (Make an appointment for follow up within 1-2 weeks of discharge) Prescriptions: Insulin Lispro [Humalog Insulin (Lispro) 100 unit/mL] 3 unit SUBCUT AC #10 ml Insulin Glargine,Hum.rec.anlog [Lantus Insulin 100 Unit/1 ml 10 ml] 10 unit SUBCUT QHS #10 ml Budesonide/Formoterol Fumarate [Symbicort Hfa 80-4.5 Mcg Inhaler 6.9 gm] 2 puff IH Q12 #2 inhaler Albuterol Sulfate [Ventolin 0.083% Neb 2.5 mg/3 mL Ampul] 1 inh NEB Q4H PRN #60 ml PRN Reason: For Wheezing Home Medications: Albuterol Sulfate [Albuterol Sulfate 2.5mg/3 mL] 1 vial IH Q4 PRN #30 vial 07/01/17 Etanercept [Enbrel] 25 mg SQ Q1 05/10/19 Methotrexate Sodium [Trexall] 5 mg PO [id number] 05/10/19 Albuterol Sulfate [Ventolin 0.083% Neb 2.5 mg/3 mL Ampul] 1 inh NEB Q4H PRN #60 ml 05/14/19 Budesonide/Formoterol Fumarate [Symbicort Hfa 80-4.5 Mcg Inhaler 6.9 gm] 2 puff IH Q12 #2 inhaler 05/14/19 Insulin Glargine,Hum.rec.anlog [Lantus Insulin 100 Unit/1 ml 10 ml] 10 unit SUBCUT QHS #10 ml 05/14/19 Insulin Lispro [Humalog Insulin (Lispro) 100 unit/mL] 3 unit SUBCUT AC #10 ml 05/14/19 History of Present Illiness History of Present Illness: MARIA A LOREDO is a 54 year old female who presents the emergency room with a 2-day history of dyspnea. She admits progressively worsening dyspnea over the last 2 days, becoming severe on the evening of admission. Her dyspnea worsens with exertion and has been accompanied by wheezing and has not improved with use of inhalers and nebulizers at home. She admits prior similar episodes related to her COPD. She denies identification of any additional aggravating or ameliorating factors for her dyspnea. EMS found her to have an O2 sat of 89% on room air and initiated treatment with supplemental oxygen on her way to the emergency room. In the emergency room she was found to be hypoxic continuing to require O2 at 2 L/min per nasal cannula in order to maintain an adequate oxygen saturation. She was also noted to be tachypneic and tachycardic but improved with nebulizer treatments and IV Solu-Medrol. She was subsequently admitted to the hospital for further evaluation and treatment. Physical Exam Vital Signs: Temp Pulse Resp BP Pulse Ox 98.3 F 80 16 105/64 94 05/14/19 08:00 05/14/19 10:19 05/14/19 10:19 05/14/19 08:00 05/14/19 10:19 Intake & Output 05/13/19 05/14/19 05/15/19 06:59 06:59 06:59 Intake Total 440 753 Output Total 300 Balance 140 753 Weight 76 kg 76.2 kg General appearance: PRESENT: no acute distress, cooperative Respiratory exam: PRESENT: wheezes Musculoskeletal exam: PRESENT: ambulatory Neurological exam: PRESENT: alert, awake Results Laboratory Results: WBC 9.3 10^3/uL (4.0-10.5) 05/12/19 03:17 RBC 4.48 10^6/uL (3.72-5.28) 05/12/19 03:17 Hgb 12.6 g/dL (12.0-15.5) 05/12/19 03:17 Hct 37.4 % (36.0-47.0) 05/12/19 03:17 MCV 84 fl (80-97) 05/12/19 03:17 MCH 28.1 pg (27.0-33.4) 05/12/19 03:17 MCHC 33.7 g/dL (32.0-36.0) 05/12/19 03:17 RDW 13.2 % (11.5-14.0) 05/12/19 03:17 Plt Count 271 10^3/uL (150-450) 05/12/19 03:17 Lymph % (Auto) 19.5 % (13-45) 05/09/19 19:10 [place] % (Auto) 3.2 % (3-13) 05/09/19 19:10 Eos % (Auto) 1.0 % (0-6) 05/09/19 19:10 Baso % (Auto) 0.5 % (0-2) 05/09/19 19:10 Absolute Neuts (auto) 4.8 10^3/uL (1.7-8.2) 05/09/19 19:10 Absolute Lymphs (auto) 1.2 10^3/uL (0.5-4.7) 05/09/19 19:10 Absolute Monos (auto) 0.2 10^3/uL (0.1-1.4) 05/09/19 19:10 Absolute Eos (auto) 0.1 10^3/uL (0.0-0.6) 05/09/19 19:10 Absolute Basos (auto) 0.0 10^3/uL (0.0-0.2) 05/09/19 19:10 Seg Neutrophils % 75.8 % (42-78) 05/09/19 19:10 Carbonic Acid 0.73 mmol/L (1.05-1.35) L 05/10/19 06:45 HCO3/H2CO3 Ratio 25:1 05/10/19 06:45 ABG pH 7.51 (7.35-7.45) H 05/10/19 06:45 ABG pCO2 24.4 mmHg (35-45) L 05/10/19 06:45 ABG pO2 56.2 mmHg (80-100) L 05/10/19 06:45 ABG HCO3 18.8 mmol/L (20-24) L 05/10/19 06:45 ABG Total CO2 19.6 mmol/L (21-25) L 05/10/19 06:45 ABG O2 Saturation 92.3 % (94-98) L 05/10/19 06:45 ABG Base Excess -2.4 mmol/L 05/10/19 06:45 FiO2 70% 05/10/19 06:45 Sodium 136.1 mmol/L (137-145) L 05/12/19 03:17 Potassium 4.9 mmol/L (3.6-5.0) 05/12/19 03:17 Chloride 101 mmol/L (98-107) 05/12/19 03:17 Carbon Dioxide 23 mmol/L (22-30) 05/12/19 03:17 Anion Gap 12 (5-19) 05/12/19 03:17 BUN 28 mg/dL (7-20) H 05/12/19 03:17 Creatinine 0.73 mg/dL (0.52-1.25) 05/12/19 03:17 Est GFR ( Amer) > 60 (>60) 05/12/19 03:17 Est GFR (MDRD) Non-Af > 60 (>60) 05/12/19 03:17 Glucose 294 mg/dL (75-110) H 05/12/19 03:17 POC Glucose 143 mg/dL (70-110) H 05/14/19 11:43 Hemoglobin A1c % 10.9 % (4.7-6.0) H 05/10/19 02:17 Calcium 9.8 mg/dL (8.4-10.2) 05/12/19 03:17 Phosphorus 5.0 mg/dL (2.5-4.5) H 05/12/19 03:17 Magnesium 2.4 mg/dL (1.6-2.3) H 05/12/19 03:17 Total Bilirubin 0.7 mg/dL (0.2-1.3) 05/09/19 19:10 Direct Bilirubin 0.2 mg/dL (0.0-0.4) 05/09/19 19:10 Neonat Total Bilirubin Not Reportable 05/09/19 19:10 Neonat Direct Bilirubin Not Reportable 05/09/19 19:10 Neonat Indirect Bili Not Reportable 05/09/19 19:10 AST 34 U/L (14-36) 05/09/19 19:10 ALT 27 U/L (<35) 05/09/19 19:10 Alkaline Phosphatase 114 U/L (38-126) 05/09/19 19:10 Total Protein 7.8 g/dL (6.3-8.2) 05/09/19 19:10 Albumin 4.6 g/dL (3.5-5.0) 05/09/19 19:10 Triglycerides 219 mg/dL (<150) H 05/12/19 03:17 Cholesterol 152.29 mg/dL (0-200) 05/12/19 03:17 LDL Cholesterol Direct 64 mg/dL (<100) 05/12/19 03:17 VLDL Cholesterol 43.8 mg/dL (10-31) H 05/12/19 03:17 HDL Cholesterol 44 mg/dL (>40) 05/12/19 03:17 TSH 0.44 uIU/mL (0.47-4.68) L 05/10/19 02:17 Urine Color STRAW 05/09/19 19:41 Urine Appearance SLIGHTLY-CLOUDY 05/09/19 19:41 Urine pH 8.0 (5.0-9.0) 05/09/19 19:41 Ur Specific [place] 1.025 05/09/19 19:41 Urine Protein NEGATIVE mg/dL (NEGATIVE) 05/09/19 19:41 Urine Glucose (UA) >=500 mg/dL (NEGATIVE) H 05/09/19 19:41 Urine Ketones 20 mg/dL (NEGATIVE) H 05/09/19 19:41 Urine Blood NEGATIVE (NEGATIVE) 05/09/19 19:41 Urine Nitrite NEGATIVE (NEGATIVE) 05/09/19 19:41 Urine Bilirubin NEGATIVE (NEGATIVE) 05/09/19 19:41 Urine Urobilinogen NEGATIVE mg/dL (<2.0) 05/09/19 19:41 Ur Leukocyte Esterase NEGATIVE (NEGATIVE) 05/09/19 19:41 Urine WBC (Auto) 1 /HPF 05/09/19 19:41 Urine RBC (Auto) 1 /HPF 05/09/19 19:41 Squamous Epi Cells Auto 1 /HPF 05/09/19 19:41 Urine Ascorbic Acid NEGATIVE (NEGATIVE) 05/09/19 19:41 Impressions: Chest X-Ray 05/09/19 19:22 IMPRESSION: No evidence of acute cardiopulmonary disease. Chest X-Ray 05/10/19 00:00 IMPRESSION: NO ACUTE RADIOGRAPHIC FINDING IN THE CHEST. Chest CT 05/11/19 00:00 IMPRESSION: There is partial atelectasis in both upper lobes as described. No other significant findings. Plan Time Spent: Greater than 30 Minutes Stroke Is this a Stroke Patient?: No Acute Heart Failure - Is this a Heart Failure Patient?: No
[2019-05-14 13:45] VITALS: BP 98/52
[2019-05-14] MEDS ORDERED: INSULIN GLARGINE,HUM.REC.ANLOG 1,000 UNIT/10 ML VIAL SUBCUT SCH (22:00)
== END 2019-05-14 14:13 | disposition home or self-care (01) | DRG 189 ==
LOC: ER 19:04 → EH 23:51 → 4N 05-10 02:09 → ICU 05-10 06:00 → 5 05-12 20:13
PROVIDERS: ADMIT Internal Medicine; ATTEND Internal Medicine
PROC: 5A09457 Assistance with Respiratory Ventilation, 24-96 Consecutive Hours, Continuous Positive Airway Pressure (ICD-10-PCS; principal; 2019-05-10)
DX: J96.01 Acute respiratory failure with hypoxia (principal); J44.1 Chronic obstructive pulmonary disease with (acute) exacerbation; E11.65 Type 2 diabetes mellitus with hyperglycemia; I10 Essential (primary) hypertension; M06.9 Rheumatoid arthritis, unspecified; Z87.891 Personal history of nicotine dependence; E66.9 Obesity, unspecified; F32.9 Major depressive disorder, single episode, unspecified; Z90.49 Acquired absence of other specified parts of digestive tract; Z79.51 Long term (current) use of inhaled steroids; Z92.25 Personal history of immunosuppression therapy; Z79.4 Long term (current) use of insulin
CPT/HCPCS: 36415; 71045; 71260; 80048; 80053; 80061; 81001; 81332; 82803; 82962; 83036; 83735; 84100; 84443; 85025; 85027; 93005; 93010; 94640; 94660; 94799; 99291; 99292; J1644; J1650; J1815; J2800; J2920; J3490; J7050; J7060; J7120; J7512; J7614; J7620